=== PATIENT | male | born 1955 | race Caucasian/White ===

== ENCOUNTER 2018-01-26 18:19 | Emergency (ER) | payer MEDICARE, SELFPAY ==
[2018-01-26 18:20] VITALS: BP 202/107; PULSE 88; RESP 16; TEMP 36.2; O2SAT 96; BMI 30.4
[2018-01-26] MEDS: Glucagon 1 MG/ML Syringe IM (18:56)
--- NOTE | 2018-01-26 19:14 | NURSING ---
pt swallowed piece of ham, will observe the pt until then .
--- NOTE | 2018-01-26 19:30 | ED.DCSUM_ITS ---
- ER Visit Summary Date of Service: 01/26/18 Chief Complaint: Food stuck History of Present Illness: The patient is a 62 M who states that he was eating some him earlier and he feels the food is stuck in his esophagus. States this is happened to him before but it has always resolved. Patient notes that he is not drooling or having to spit. He is not short of breath. Does not feel like he is choking. 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 He has appointment upcoming is beginning of next month to have scope done. Physical Examination: Afebrile vital signs are stable Patient is sitting comfortably in the bed. He is not coughing. He is not drooling. His lungs are clear. Emergency Department Course and Treatment: Patient received glucagon and coke and he had resolution of his symptoms. He will be discharged home to follow-up with his doctor as scheduled. Impression: 1. Esophageal food bolus - resolved This note was generated with [employer] dictation software. It may contain incorrect words, spelling, and punctuation that were not noted in review of the chart prior to signing ED Disposition - Plan for ED Patient: Disposition: Home or Assisted Living Chief Complaint: Foreign Body Instructions: ED Foreign Body Esophageal Rslv Referrals: Michael Weber [Primary Care Provider] - Additional Instructions: You need to have a upper endoscopy. Please see referral to Dr. Stock above or the financial retirement plan specialist/surgeon of your choice.
[2018-01-26 19:43] VITALS: BP 173/100; PULSE 74; RESP 17; O2SAT 95
--- NOTE | 2018-01-26 19:48 | ED.RN ---
DISCHARGE INSTRUCTIONS GIVEN TO AND REVIEWED WITH PATIENT, PATIENT DENIES QUESTIONS OR CONCERNS AND VOICES UNDERSTANDING OF DISCHARGE INSTRUCTIONS. PT AMBULATES OUT OF ROOM WITHOUT DIFFICULTY.
== END 2018-01-26 19:50 | disposition home or self-care (01) ==
PROVIDERS: Emergency Provider Emergency Medicine; Family Provider Family Medicine; PCP Family Medicine
DX: T18.128A Food in esophagus causing other injury, initial encounter (principal); X58.XXXA Exposure to other specified factors, initial encounter; Y93.89 Activity, other specified; Y92.9 Unspecified place or not applicable; Z85.810 Personal history of malignant neoplasm of tongue; I10 Essential (primary) hypertension; K21.9 Gastro-esophageal reflux disease without esophagitis; Z79.899 Other long term (current) drug therapy
CPT/HCPCS: 96372; 99283; A4216; J1610

== ENCOUNTER → 2018-02-16 07:26 | Outpatient (CLI) | payer MEDICARE, SELFPAY ==
--- NOTE | 2018-02-16 07:30 | RAD_ITS ---
STUDY: X-RAY - ESOPHAGUS (BARIUM SWALLOW) WITH FLUOROSCOPY REASON FOR EXAM: Male, 62 years old. Dysphagia for solids and pills. 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 TECHNIQUE: 17 view(s) of the esophagus were obtained following swallowing of barium. FLUOROSCOPY TIME (if supplied): (1:30) minutes/seconds COMPARISON: None. FINDINGS: There is no demonstrated esophageal foreign body. There is evidence of a long segment narrowing of the proximal esophagus just distal to the origin of the esophagus to the level of the T1 vertebrae. The patient ingested a 12 mm tablet of barium. The tablet its trapped at that site. Correlation with endoscopy is recommended.. There is evidence of a small sliding hiatal hernia without gastroesophageal reflux. There is atherosclerotic calcification of the aortic arch with tortuosity of the descending aorta. Normal visualized pulmonary parenchyma. There are diffuse degenerative changes of the visualized thoracic spine. RAD/Esophagus Only IMPRESSION: Long segment of narrowing in the proximal esophagus with trapping of the 12 mm tablet of barium. Correlation with endoscopy is recommended for further evaluation. Small hiatal hernia without gastroesophageal reflux. Electronically Signed: Conner Gillespie MD at 8:56 EDT Tel [phone], Service support ,
== END ==
PROVIDERS: Family Provider Family Medicine; PCP Family Medicine; Visit Provider Internal Medicine Gastroenterology
DX: K22.2 Esophageal obstruction (principal); K44.9 Diaphragmatic hernia without obstruction or gangrene; R13.10 Dysphagia, unspecified
CPT/HCPCS: 74220

== ENCOUNTER 2018-03-07 20:07 | Emergency (ER) | payer MEDICARE, SELFPAY ==
[2018-03-07 20:08] VITALS: BP 151/93; PULSE 65; RESP 18; TEMP 36.8; O2SAT 97; BMI 29.2
--- NOTE | 2018-03-07 21:37 | NURSING ---
LAST TETANUS 2009 PER PT.
--- NOTE | 2018-03-07 22:06 | RAD_ITS ---
STUDY: X-RAY - LEFT FOOT CLINICAL: Male, 62 years old. Puncture wound TECHNIQUE: 3 view(s) of the foot. COMPARISON: 08/01/2015. FINDINGS: There is no evidence of fracture or dislocation. There are mild degenerative changes in the midfoot and at the first metatarsophalangeal joint. There are no radiodense foreign bodies. There is a plantar calcaneal spur noted. RAD/Foot min 3 Views IMPRESSION: No fracture or dislocation. Mild degenerative change. No radiodense foreign body. Plantar calcaneal spur. Electronically Signed: Randell Flores, at 23:24 EDT Tel , Service support ,
--- NOTE | 2018-03-07 22:06 | ED.DCSUM_ITS ---
- ER Visit Summary Date of Service: 03/07/18 Chief Complaint: Left foot puncture wound History of Present Illness: The patient is a 62 M puncture wound left foot yesterday evening. Resting nail through a rubber shoe. Epson salt yesterday. Tylenol and Aleve being used. Increasing pain. No fevers. History of diabetes. Allergies to latex. Tetanus 8 years ago. Physical Examination: General: Alert and oriented ?3, no acute distress HEENT: Normocephalic, atraumatic. Moist mucosa membranes Neck: supple, nontender. Cardiovascular: Regular rate and rhythm, no murmurs Respiratory: Normal breath sounds, symmetric, no distress Abdomen: Soft, nontender, nondistended Extremities: no edema, pulses intact ?4. Left lower extremity: Foot noted puncture ventral aspect lateral midfoot. No drainage or erythema. No dorsal foot erythema. Minimal tenderness to palpation. Neuro: no focal neurological deficits. Test Results: Left foot x-ray: No radiopaque foreign bodies Emergency Department Course and Treatment: Patient tetanus updated. No signs of infection. X-ray negative for radiopaque foreign bodies. Due to puncture through rubber soled shoes. We will placed on Cipro for 10 days. Wound care discussed. Follow-up with PCP. Return if any worsening symptoms. Treatment Plan: [] Disposition: Discharge Impression: 1. Left foot puncture wound 2. Tetanus update This note was generated with [employer] dictation software. It may contain incorrect words, spelling, and punctuation that were not noted in review of the chart prior to signing ED Disposition - Plan for ED Patient: Disposition: Home or Assisted Living Chief Complaint: Wound Diagnosis: Puncture wound of left foot, Tetanus update Instructions: ED Wound Puncture Foot Prescriptions: Ciprofloxacin [Cipro] 500 mg PO BID #20 tablet Referrals: Michael Weber [Primary Care Provider] - 5-7 Days
[2018-03-07] MEDS: Diphth,Pertuss(Acell),Tet Vac 0.5 ML Vial IM (22:24)
[2018-03-07] MEDS: Ciprofloxacin 500 MG Tablet PO (22:24)
[2018-03-07 23:07] VITALS: BP 135/84; PULSE 56; RESP 18; O2SAT 96
== END 2018-03-07 23:10 | disposition home or self-care (01) ==
PROVIDERS: Emergency Provider Emergency Medicine; Family Provider Family Medicine; PCP Family Medicine
DX: S91.332A Puncture wound without foreign body, left foot, initial encounter (principal); W22.8XXA Striking against or struck by other objects, initial encounter; Y93.9 Activity, unspecified; Y92.9 Unspecified place or not applicable; I10 Essential (primary) hypertension; E78.00 Pure hypercholesterolemia, unspecified; E11.9 Type 2 diabetes mellitus without complications; Z79.84 Long term (current) use of oral hypoglycemic drugs; Z79.899 Other long term (current) drug therapy
CPT/HCPCS: 73630; 90715; 99282

== ENCOUNTER → 2018-11-30 17:04 | Outpatient (CLI) | payer MEDICARE, SELFPAY ==
[2018-11-30 18:00] LABS: Hematocrit 42.6 % (40-54); Hemoglobin 14.2 g/dl (13.0-16.5); Mean Corp Hgb Conc 33.3 g/gl (32-36); Mean Corpuscular Hgb 29.8 pg (27.0-32.0); Mean Corpuscular Volume 89.3 fL (80-94); Mean Platelet Vol. 8.3 fl (6.2-12.0); Platelet Count 272 K/mm3 (150-450); RBC Distribution Width CV 13.6 % (11.6-14.6); RBC Distribution Width SD 44.4 fl (35.1-43.9); Red Blood Count 4.77 M/mm3 (4.6-6.2)
[2018-11-30 18:01] LABS: Scan Indicated on CBC? Y/N NO
--- NOTE | 2018-11-30 18:01 | SDCEKG_ITS ---
Test Reason : PREOP Blood Pressure : / mmHG Vent. Rate : 064 BPM Atrial Rate : 064 BPM P-R Int : 156 ms QRS Dur : 094 ms QT Int : 408 ms P-R-T Axes : -12 017 059 degrees QTc Int : 420 ms Normal sinus rhythm Normal ECG Confirmed by DARIA BEDOLLA, PATTI ([id number]), desk editor DYLAN MARIE ([id number]) on 12/03/2018 3:26:42 PM Referred By: Peter Ponce Confirmed By:PATTI HUFF MD
[2018-11-30 18:18] LABS: Anion Gap 11 (5-15); BUN 17 mg/dL (7-18); BUN/Creat Ratio 20.8 RATIO (10-20); Calcium,Total 8.9 mg/dL (8.5-10.1); Chloride 97 mmol/L (98-107); Creatinine, Serum 0.82 mg/dL (0.70-1.30); EST Glomerular Filtration Rate 101 mL/min (>60); Est Glom Filt Rate - Afr Amer 122 mL/min (>60); Glucose 137 mg/dL (74-106); Potassium 4.4 mmol/L (3.5-5.1); Sodium Level 132 mmol/L (136-145)
== END ==
PROVIDERS: Family Provider Family Medicine; PCP Family Medicine; Referring Provider Physician Assistant; Visit Provider Physician Assistant
DX: Z01.818 Encounter for other preprocedural examination (principal)
CPT/HCPCS: 36415; 80048; 85027; 93005

== ENCOUNTER → 2020-09-14 09:05 | Outpatient (CLI) | payer MEDICARE, SELFPAY | PROVIDERS: PCP Family Medicine; Referring Provider Internal Medicine Gastroenterology; Visit Provider Internal Medicine Gastroenterology | DX: Z11.59 Encounter for screening for other viral diseases (principal) | CPT/HCPCS: 87635; C9803; U0003 ==

== ENCOUNTER → 2021-01-01 11:03 | Outpatient (CLI) | payer MEDICARE, SELFPAY ==
--- NOTE | 2021-01-01 08:00 | PROSBIL_PTH ---
PATIENT: HERMAN LOPEZ LOC: [facility] U#:[id number] AGE/SX: 70/M ROOM: RE01/01/[address]: Dr. Mao Chaidez MD : 1955 BED: DIS: SPEC #: [id number] RECD: 01/01/21 11:19 STATUS: DIANA VARGHESE #: [id number] JIMENEZ: 01/01/21 08:[address]: Mao Chaidez DEPT: SURGICAL PATHOLOGY RECD BY: Altagracia Cantu ENTERED: 01/01/21 11:20 SP TYPE: PROST BX BLANCA DR: Dr. Michael Weber MD Tissues: A - PROSTATE RIGHT B - PROSTATE RIGHT C - PROSTATE RIGHT D - PROSTATE LEFT E - PROSTATE LEFT F - PROSTATE LEFT Procedures: PROSTATE BX HEADER OPERATION: Prostate biopsy PRE-OP DIAGNOSIS: Elevated PSA TISSUE SUBMITTED: A - Right apex, B - Right mid, C - Right base, D - Left apex, E - Left mid, F - Left base MICROSCOPIC DIAGNOSIS A. Right prostate, apex, core biopsy: Prostatic tissue, negative for malignancy. B. Right prostate, mid, core biopsy: Prostatic tissue, negative for malignancy. Focal mild acute and chronic inflammation. C. Right prostate, base, core biopsy: Prostatic tissue, negative for malignancy. D. Left prostate, apex, core biopsy: Prostatic tissue, negative for malignancy. E. Left prostate, mid, core biopsy: Prostatic tissue, negative for malignancy. F. Left prostate, base, core biopsy: Prostatic tissue, negative for malignancy. SJ:mehdi 01/02/2021 MICROSCOPIC DESCRIPTION Slides are reviewed. GROSS DESCRIPTION A - Received is one container designated prostate, right apex. The specimen consists of one elongated fragment of light anglin-white soft tissue measuring 0.3 cm in length and 0.1 cm in diameter. Also present is one minute fragment of anglin soft tissue measuring 0.1 x 0.1 x 0.1 cm. The specimen is totally submitted in one cassette. B - Received is one container designated prostate, right mid. The specimen consists of two elongated fragments of light anglin-white soft tissue measuring 1 and 1.5 cm in length and 0.1 cm in diameter. The specimen is totally submitted in one cassette. C - Received is one container designated prostate, right base. The specimen consists of two elongated fragments of light anglin-white soft tissue measuring 1 and 1.2 cm in length and 0.1 cm in diameter. The specimen is totally submitted in one cassette. D - Received is one container designated prostate, left apex. The specimen consists of one elongated fragment of light anglin-white soft tissue measuring 1.8 cm in length and 0.1 cm in diameter. The specimen is totally submitted in one cassette. E - Received is one container designated prostate, left mid. The specimen consists of two elongated fragments of light anglin-white soft tissue measuring 1 and 2 cm in length and 0.1 cm in diameter. The specimen is totally submitted in one cassette. F - Received is one container designated prostate, left base. The specimen consists of one elongated fragment of light anglin-white soft tissue measuring 1.5 cm in length and 0.1 cm in diameter. The specimen is totally submitted in one cassette. / SJ:rg 01/01/21 TC:3 CPT: G0146
== END ==
PROVIDERS: PCP Family Medicine; Referring Provider Urology; Visit Provider Urology
DX: R97.20 Elevated prostate specific antigen [PSA] (principal)
CPT/HCPCS: 88305; G0416

== ENCOUNTER → 2021-01-17 14:34 | Outpatient (CLI) | payer MEDICARE, SELFPAY | PROVIDERS: PCP Family Medicine; Referring Provider Internal Medicine Gastroenterology; Visit Provider Internal Medicine Gastroenterology | DX: Z11.59 Encounter for screening for other viral diseases (principal) | CPT/HCPCS: 87635; C9803; U0002 ==

== ENCOUNTER 2021-02-13 05:44 | Day surgery (SDC) | payer MEDICARE, SELFPAY ==
--- NOTE | 2021-02-08 10:02 | EKG12_ITS ---
Test Reason : PREOP Blood Pressure : / mmHG Vent. Rate : 056 BPM Atrial Rate : 056 BPM P-R Int : 172 ms QRS Dur : 100 ms QT Int : 418 ms P-R-T Axes : 014 055 054 degrees QTc Int : 403 ms Sinus bradycardia Poor R- wave progression Confirmed by YUMIKO BEDOLLA, BRIANA ([id number]), senior technical editor SHANTEL LAWS ([id number]) on 02/11/2021 2:06:04 PM Referred By: ANTOINE Confirmed By:BRIANA CALDERON MD
--- NOTE | 2021-02-08 10:10 | RAD_ITS ---
STUDY: X-RAY CHEST REASON FOR EXAM: Male, 65 years old. HX RADIATION/PREOP TECHNIQUE: PA and lateral views of the chest. COMPARISON: 08/01/2015 FINDINGS: The lungs are clear and expanded. There is no demonstrated pleural abnormality. Normal size heart. Moderate-sized hiatal hernia which is unchanged. Normal visualized pulmonary arteries. Normal visualized aortic arch and descending thoracic aorta. Normal visualized thoracic spine. Normal visualized ribs, clavicles, and shoulders. There is no demonstrated abnormality of the visualized soft tissue structures of the upper abdomen. RAD/Chest PA and Lateral IMPRESSION: No active disease. Electronically Signed: Antonio Cui MD at 7:48 EDT Tel , Service support ,
[2021-02-08 11:15] LABS: Hematocrit 39.9 % (40-54); Hemoglobin 13.2 g/dL (13.0-16.5); Mean Corp Hgb Conc 33.1 g/dL (32-36); Mean Corpuscular Hgb 31.1 pg (27.0-32.0); Mean Corpuscular Volume 93.9 fL (80-94); Mean Platelet Vol. 8.4 fl (6.2-12.0); Platelet Count 341 K/mm3 (150-450); RBC Distribution Width SD 44.7 fl (35.1-43.9); Red Blood Count 4.25 M/mm3 (4.6-6.2); White Blood Count 8.3 K/mm3 (4.4-11.0)
[2021-02-08 11:37] LABS: Hemoglobin A1c 5.8 % (3.8-5.6)
[2021-02-08 11:58] LABS: Anion Gap 6 (5-15); BUN 19 mg/dL (7-18); BUN/Creat Ratio 19.8 RATIO (10-20); Calcium,Total 9.4 mg/dL (8.5-10.1); Chloride 98 mmol/L (98-107); Creatinine, Serum 0.96 mg/dL (0.70-1.30); EST Glomerular Filtration Rate 83 mL/min (>60); Est Glom Filt Rate - Afr Amer 101 mL/min (>60); Glucose 116 mg/dL (74-106); Potassium 4.4 mmol/L (3.5-5.1); Sodium Level 129 mmol/L (136-145); Thyroid Stim Hormone (TSH) 0.45 uIU/mL (0.358-3.74)
[2021-02-13] VITALS (12 sets, daily range): BP systolic 117–175; BP diastolic 65–90; PULSE 53–77; RESP 16–18; TEMP 36–37.4; O2SAT 94–98; BMI 25.6
--- NOTE | 2021-02-13 | PROS_PTH ---
PATIENT: HERMAN LOPEZ LOC: [facility] [place] U#:[id number] AGE/SX: 65/M ROOM: RE02/13/[address]: Dr. Mao Chaidez MD : 1955 BED: DIS: 02/14/2021 SPEC #: [id number] RECD: 02/13/21 10:29 STATUS: DIANA REBrandy #: [id number] JIMENEZ: 02/13/21 00:[address]: Mao Chaidez DEPT: SURGICAL PATHOLOGY RECD BY: Torrey Gonzalez ENTERED: 02/13/21 10:29 SP TYPE: TURP OTHR DR: Dr. Michael Weber MD Tissues: Prostate, NOS Procedures: Surgery Specimen Level IV HEADER OPERATION: Cysto, TUR prostate, Olymp[employer] PRE-OP DIAGNOSIS: BPH with obstruction TISSUE SUBMITTED: Prostate chips MICROSCOPIC DIAGNOSIS Prostate, transurethral resection: Benign nodular hyperplasia, glandular and stromal types. Chronic prostatitis. AM:mehdi 02/14/2021 MICROSCOPIC DESCRIPTION Slides are reviewed. GROSS DESCRIPTION Received is one container labeled with the patient's name and designated prostate chips. The specimen consists of multiple irregular fragments of pink-anglin, rubbery, soft tissue that in aggregate weigh 12.6 gm and measure in aggregate 4.5 x 3 x 2 cm. The entire specimen is submitted in 12 cassettes. / SJ:mehdi 02/13/21 TC:3 CPT: 99590
[2021-02-13 06:21] LABS: Bedside Glucose 124 mg/dL (70-110)
[2021-02-13] MEDS: Lactated Ringers 1,000 ML 100 ML IV (06:29)
[2021-02-13] MEDS: Cefazolin 2 GM in 0.9% Normal Saline 100 ML IV (07:22)
--- NOTE | 2021-02-13 07:27 | HP.PCM_ITS ---
History of Present Illness Date of Admission: 02/13/21 Chief Complaint: BPH with obstruction The patient is a 65 year old male with a history of enlarged prostate with BPH with obstruction and failed medical therapy and today working to proceed with surgery for his prostate to relieve the obstruction. Working to do a TURP. Past Medical History Allergies latex Adverse Reaction (Verified 02/13/21 06:17) Rash Home Medications: Ambulatory Orders Medication Instructions Recorded Enalapril Maleate [Vasotec] 20 mg PO BID 01/26/18 Fexofenadine HCl [Suki Allergy] 60 mg PO DAILY 01/26/18 Glucosamine/MSM/Chondroitin A 2 tab PO BID 01/26/18 [Glucosamine Chondroit MSM Tab] Lovastatin [Mevacor] 40 mg PO QHS 01/26/18 Omeprazole 40 mg PO QHS 01/26/18 Pilocarpine HCl [Salagen] 10 mg PO BID 01/26/18 metFORMIN HCl [Glucophage] 1,000 mg PO BID 01/26/18 Calcium Carbonate [Calcium] 500 mg PO DAILY 03/07/18 Acetaminophen [Tylenol Arthritis] 1,300 mg PO BID 02/06/21 Acetaminophen [Tylenol Extra 500 mg PO BID 02/06/21 Strength] Famotidine [Acid Compress Trucker] 10 mg PO DAILY 02/06/21 Levothyroxine [Synthroid] 100 mcg PO DAILY 02/06/21 Metoprolol Tartrate [Lopressor 100 mg PO DAILY 02/06/21 (Beta Tahir)] Surgical History: no surgical history Smoking Status: Former smoker Tobacco Use: Non-smoker Review of Systems Constitutional: Denies: Chills, Fever, Weight Change HEENT: Denies: Head Aches, Sinus Congestion, Sinus Drainage Cardiovascular: Denies: Chest Pain, Palpitations Respiratory: Denies: Cough, Shortness of breath at rest, Sputum production Gastrointestinal: Denies: Abdominal Pain, Nausea, Vomiting Genitourinary: Denies: Dysuria Musculoskeletal: Denies: Joint Pain, Joint Tenderness Skin: Denies: Rash, Wounds Neurological: Denies: Numbness, Tingling, Focal weakness Psychiatric: Denies: Anxiety, Depression, Homicidal Ideations, Suicidal Ideations Hematologic/ Lymphatic: Denies: Easy Bruising, Easy Bleeding VTE Information - Inpt Only VTE Present on Admission: No - Physical Exam Vitals/I&O's: Vital Signs Temp Pulse Resp BP Pulse Ox 97.6 F L 53 L 16 120/76 97 02/13/21 06:22 02/13/21 06:22 02/13/21 06:22 02/13/21 06:22 02/13/21 06:22 Oxygen Delivery Method Room Air Weight: 76.4 kg Body Mass Index (BMI) 25.6 General: Alert, Oriented x3, Cooperative HEENT: Atraumatic, PERRLA, EOMI, Normocephalic Neck: Supple, No JVD, Negative Carotid Bruits Lungs: Clear to auscultation, Normal air movement Cardiovascular: Regular rate, No murmurs Abdomen: Bowel Sounds Present, Soft, Non Tender Extremities: No edema, Capillary Refill Less than 3 Seconds Skin: No rashes, No breakdown Musculoskeletal: No Tenderness to Palpation of Joints or Extremities Neurological: Cranial nerves II-XII grossly intact Psych/Mental Status: Normal Affect, Appropriate Microbiology Past 72 Hours 02/12/21 10:15 Interface Orders SARS-CoV-2 Antigen (Rapid) - Final Laboratory Results 02/13/21 06:15: POC Glucose 124 H Current Medications Cefazolin Sodium 2 gm/ Sodium (Chloride) 110 mls @ 150 mls/hr IV PREOP ONE Stop: 02/13/21 07:43 Lactated Ringer's () 1,000 mls @ 100 mls/hr IV .Q10H CARLOTTA Last Admin: 02/13/21 06:29 Dose: 100 mls/hr Documented by: Assessment/Plan Plan to proceed with a transurethral resection of the prostate.
--- NOTE | 2021-02-13 07:29 | DCINST_ITS ---
Discharge Diet: Light diet - advance as tolerated Discharge Activity: Return to Normal Activity Call your doctor if your incision/area has: Sudden Increased Bleeding Call your doctor if you observe: Fever of 101 or Higher Instructions: Transurethral Resection of the Prostate (TURP): Home Recovery Allergies/Adverse Reactions: Allergies latex Adverse Reaction (Verified 02/13/21 06:17) Rash Medications to take at Discharge Enalapril Maleate [Vasotec] 20 mg PO BID 01/26/18 Fexofenadine HCl [Suki Allergy] 60 mg PO DAILY 01/26/18 Glucosamine/MSM/Chondroitin A [Glucosamine Chondroit MSM Tab] 2 tab PO BID 01/26/18 Lovastatin [Mevacor] 40 mg PO QHS 01/26/18 Omeprazole 40 mg PO QHS 01/26/18 Pilocarpine HCl [Salagen] 10 mg PO BID 01/26/18 metFORMIN HCl [Glucophage] 1,000 mg PO BID 01/26/18 Calcium Carbonate [Calcium] 500 mg PO DAILY 03/07/18 Acetaminophen [Tylenol Arthritis] 1,300 mg PO BID 02/06/21 Acetaminophen [Tylenol Extra Strength] 500 mg PO BID 02/06/21 Famotidine [Acid District Representative] 10 mg PO DAILY 02/06/21 Levothyroxine [Synthroid] 100 mcg PO DAILY 02/06/21 Metoprolol Tartrate [Lopressor (Beta Tahir)] 100 mg PO DAILY 02/06/21 Ciprofloxacin [Cipro] 500 mg PO BID #10 tab 02/13/21 Ibuprofen 600 mg PO Q6H PRN PRN #20 tablet 02/13/21 The following prescriptions were given: Ciprofloxacin [Cipro] 500 mg PO BID #10 tab Transmission Status: Pending to [facility] Ibuprofen 600 mg PO Q6H PRN PRN #20 tablet PRN Reason: Pain 1-10 Or Fever Transmission Status: Pending to [facility] Primary Care Physician: Michael Weber MD [Primary Care Provider] - Test Results: Test results from this visit will be discussed in further detail at your follow- up appointment, if applicable. Please Follow Up With: Mao Chaidez MD When: in 2 weeks, please call to make an appointment. Proposed Discharge Date: 02/14/21
[2021-02-13] MEDS: Lubricating Jelly 60 GM Tube 30 GM TOPICAL (07:40)
--- NOTE | 2021-02-13 08:33 | PCM.OPRPT ---
Report of Operation Date of Procedure: 02/13/21 Pre-Operative Diagnosis: BPH with obstruction Post-Operative Diagnosis: Same Surgery/Procedure Performed:: Transurethral section of prostate Description of Surgical Findings:: In the preoperative setting I discussed with the patient how the surgery would be done with expect afterwards. We discussed how a prostate resection is done and we discussed the risk of the surgery including, bleeding, infection, retrograde ejaculation, changes with ejaculation or intercourse,. We discussed the possibility that the resection of the prostate may not alleviate his urinary symptoms. We discussed the small risk of developing scar tissue along the urethral channel and strictures. We also discussed the chance of the prostate could grow back and he may need further surgery or treatment in the future for prostate problems. Patient was taken back to the operating room, timeout procedure was performed, he was identified and marked and placed on the operating room table. He underwent general anesthesia. He was placed in dorsolithotomy position. Penis and testicles were prepped and draped in usual sterile fashion. Went into the bladder using the visual obturator with a resectoscope. Once inside the bladder identified the right and left ureteral orifice. I then identified the prostate and the anatomy of the prostate. I marked out the area of the sphincter and the verumontanum was identified. I then proceeded with the prostate resection first resected the median lobe. And then resected the right lobe of the prostate. Then to resect the left lobe of the prostate. I then resected the apical tissue of the prostate. Made sure that there was no injury to the sphincter or the verumontanum was still intact. At the end of the resection all the chips were Ellik out of the bladder. I then identified the left and right ureteral orifice and these were confirmed to be in good position and effluxing and not injured. The resectoscope was removed, a 22 [place] catheter was placed into the bladder on continuous irrigation. And the urine was fairly light pink color and draining normally. He was taken back to the PACU in good condition. Type of Anesthesia:: General - Admit VTE Documentation VTE Present on Admission: No VTE Mechan Device Prophylaxis: SCD's
[2021-02-13 09:30] LABS: Bedside Glucose 121 mg/dL (70-110)
[2021-02-13] MEDS: 0.9% Normal Saline 1,000 ML 75 ML IV ×2 (10:21→23:29)
[2021-02-13] MEDS: metFORMIN HCl 1,000 MG Tablet 1000 MG PO (18:15)
[2021-02-13] MEDS: Docusate Sodium 100 MG Capsule PO (20:55)
[2021-02-13] MEDS: Atorvastatin Calcium 10 MG Tablet PO (20:56)
[2021-02-13] MEDS: Lisinopril 20 MG Tablet PO (20:56)
[2021-02-13] MEDS: Pantoprazole Sodium 40 MG Tablet PO (20:56)
[2021-02-13] MEDS: Pilocarpine HCl 5 MG Tablet 10 MG PO (20:57)
[2021-02-13] MEDS: Ciprofloxacin 400 MG/200 ML BAG 200 MG IV (21:00)
[2021-02-14 03:00] VITALS: BP 117/71; PULSE 67; RESP 18; TEMP 37.2; O2SAT 94
[2021-02-14] MEDS: Levothyroxine 100 MCG Tablet PO (06:31)
[2021-02-14 08:08] VITALS: BP 148/81; PULSE 66; RESP 18; TEMP 36.9; O2SAT 94
[2021-02-14] MEDS: Lisinopril 20 MG Tablet PO (08:10)
[2021-02-14] MEDS: Docusate Sodium 100 MG Capsule PO (08:10)
[2021-02-14] MEDS: metFORMIN HCl 1,000 MG Tablet 1000 MG PO (08:10)
[2021-02-14 08:11] VITALS: PULSE 66
[2021-02-14] MEDS: Metoprolol(XL)Succ 100 MG Tablet PO (08:11)
[2021-02-14] MEDS: Pilocarpine HCl 5 MG Tablet 10 MG PO (08:11)
[2021-02-14] MEDS: Ciprofloxacin 400 MG/200 ML BAG 200 MG IV (09:51)
== END 2021-02-14 11:54 | disposition home or self-care (01) ==
LOC: SDC 05:49 → AC 05:49 → MS3 08:59
PROVIDERS: Anesthesiology; PCP Family Medicine; Referring Provider Urology; Visit Provider Urology
PROC: (CPT 52601; principal; 2021-02-13 07:20)
DX: N40.1 Benign prostatic hyperplasia with lower urinary tract symptoms (principal); N13.8 Other obstructive and reflux uropathy; E78.2 Mixed hyperlipidemia; K21.9 Gastro-esophageal reflux disease without esophagitis; E11.9 Type 2 diabetes mellitus without complications; I10 Essential (primary) hypertension; Z87.891 Personal history of nicotine dependence; Z79.84 Long term (current) use of oral hypoglycemic drugs; Z79.899 Other long term (current) drug therapy; E07.9 Disorder of thyroid, unspecified
CPT/HCPCS: 00914; 52601; 36415; 71046; 80048; 82962; 83036; 84443; 85027; 87426; 88305; 93005; C9803; J7030; J7120; J0744; J2405

== ENCOUNTER → 2021-07-04 08:52 | Outpatient (CLI) | payer MEDICARE, SELFPAY ==
[2021-07-04 10:23] LABS: PSA,Total- Diagnostic 1.56 ng/mL (0.0-4.0)
== END ==
PROVIDERS: PCP Family Medicine; Referring Provider Urology; Visit Provider Urology
DX: R97.20 Elevated prostate specific antigen [PSA] (principal)
CPT/HCPCS: 36415; 84153

== ENCOUNTER 2022-01-26 12:51 | Observation (INO) | payer MEDICARE, SELFPAY ==
[2022-01-26] VITALS (7 sets, daily range): BP systolic 174–232; BP diastolic 71–106; PULSE 58–63; RESP 14–18; TEMP 36.4–36.7; O2SAT 95–98; BMI 27.3; BMI 24.5
--- NOTE | 2022-01-26 13:53 | CT_ITS ---
STUDY: CT BRAIN WITHOUT CONTRAST REASON FOR EXAM: Male, 66 years old. Stroke RADIATION DOSAGE (If Supplied By Facility): CTDIvol = ( 44.99 ) mGy, DLP = ( 779.24 ) mGycm TECHNIQUE: Transaxial CT imaging of the brain was performed without administration of intravenous contrast material. Individualized dose optimization techniques were used for this CT. COMPARISON: 08/01/2015 FINDINGS: There is no intra-/extra-axial fluid collection, mass effect, or midline shift. The kaiser/white matter junction is preserved. Mild diffuse parenchymal volume loss is noted. The basal cisterns are patent. Polyps versus retention cysts are noted in the left sphenoid sinus and right ethmoid air cells. Minimal mucoperiosteal thickening of the bilateral ethmoid air cells is seen.. The calvarium is intact. CT/Brain/Head without Contrast IMPRESSION: No acute intracranial finding. MRI may be obtained if clinical suspicion for acute stroke is high. Electronically Signed: Anthony Baldwin MD at 15:29 EDT ,
[2022-01-26 15:09] LABS: Absolute Lymphocyte Count 1.41 X10^3/uL (0.83-4.51); Absolute Neutrophil Count 6.1 X10^3/uL (2.0-7.7); Basophil# 0.09 X10^3/uL; Eosinophil# 0.16 X10^3/uL; Eosinophils% 1.8 % (0-5); Hematocrit 33.1 % (40-54); Hemoglobin 12.2 g/dL (13.0-16.5); Lymphocyte # 1.41 X10^3/ul (0.83-4.51); Lymphocyte % 15.7 % (19-41); Mean Corp Hgb Conc 36.9 g/dL (32-36); Mean Corpuscular Hgb 32.3 pg (27.0-32.0); Mean Corpuscular Volume 87.6 fL (80-94); Mean Platelet Vol. 7.5 fl (6.2-12.0); Monocyte# 1.03 X10^3/uL; Monocyte% 11.5 % (0-10); NRBC Flagged by Analyzer 0 % (0-5); Neutrophil # 6.09 X10^3/uL (2.7-7.7); Neutrophil % 67.7 % (47-70); Platelet Count 368 K/mm3 (150-450); RBC Distribution Width CV 13.2 % (11.6-14.6); Red Blood Count 3.78 M/mm3 (4.6-6.2)
[2022-01-26 15:24] LABS: AST(SGOT) 13 U/L (15-37); Alanine Aminotransfer ALT/SGPT 20 U/L (16-61); Albumin, Serum 3.5 g/dL (3.2-5.0); Alkaline Phosphatase 53 U/L (45-117); Anion Gap 8 (5-15); BUN 17 mg/dL (7-18); BUN/Creat Ratio 18.6 RATIO (10-20); Calcium,Total 9.2 mg/dL (8.5-10.1); Chloride 86 mmol/L (98-107); Creatinine, Serum 0.91 mg/dL (0.70-1.30); EST Glomerular Filtration Rate 88 mL/min (>60); Est Glom Filt Rate - Afr Amer 106 mL/min (>60); Estimated Creatinine Clearance 76.21 ml/min; Globulin 3.6 g/dL (2.2-4.2); Glucose 119 mg/dL (74-106); Protein, Total 7.1 g/dL (6.4-8.2); Sodium Level 122 mmol/L (136-145)
--- NOTE | 2022-01-26 15:48 | EDS_ITS ---
HPI History of Present Illness Chief Complaint: Ear Problem Informant: patient and family Onset/Context/Timing Onset: Today Timing: Continuous Quality: Hearing loss Location: Ears Worsened by: Nothing Relieved by: Nothing Narrative Narrative: Patient presents with hearing loss that became worse today. Family states patient has been having difficulty hearing as well as difficulty comprehending things that are spoken to him. Patient denies any ear pain. Family states patient has had 35 pound weight loss since the beginning of the year. Family reports patient does have a history of throat cancer and they are concerned with metastasis. Family also noted sores and bumps to the occipital scalp that have been getting progressively worse. [facility] Medical History (Updated 01/26/22 @ 16:[address] Ulisses Cali, DO) Diabetes History of prostate cancer History of throat cancer HLD (hyperlipidemia) Hypertension Home Medications Lovastatin [Mevacor] 40 mg PO QHS 01/26/18 [History Last Taken Unknown] Pilocarpine Hcl [Salagen] 10 mg PO BID 01/26/18 [History Last Taken Unknown] enalapril maleate 20 mg PO BID 01/26/18 [History Last Taken Unknown] fexofenadine [Suki Allergy] 60 mg PO DAILY 01/26/18 [History Last Taken Unknown] glucosamine [id number] 2 tab PO BID 01/26/18 [History Last Taken Unknown] metformin 1,000 mg PO BID 01/26/18 [History Last Taken Unknown] omeprazole 40 mg PO QHS 01/26/18 [History Last Taken Unknown] calcium carbonate 500 mg PO DAILY 03/07/18 [History Last Taken Unknown] acetaminophen 1,300 mg PO BID 02/06/21 [History Last Taken Unknown] acetaminophen 500 mg PO BID 02/06/21 [History Last Taken Unknown] famotidine 10 mg PO DAILY 02/06/21 [History Last Taken Unknown] levothyroxine 100 mcg PO DAILY 02/06/21 [History Last Taken Unknown] metoprolol tartrate 100 mg PO DAILY 02/06/21 [History Last Taken Unknown] ciprofloxacin HCl 500 mg PO BID #10 tab 02/13/21 [Rx Last Taken Unknown] ibuprofen 600 mg PO Q6H PRN PRN #20 tablet 02/13/21 [Rx Last Taken Unknown] Allergy/AdvReac Type Severity Reaction Status Date / Time latex AdvReac Rash Verified 01/26/22 12:54 Family History (Updated 01/26/22 @ 16:[address] Lexie Peña MD) Mother Diabetes Gout Father Diabetes Gout Surgical History (Updated 01/26/22 @ 16:[address] Lexie Peña MD) H/O bone marrow transplant Hx of neck surgery S/P TURP Social History Smoking Status: Former smoker ROS ROS ED Constitutional Constitutional ED: Denies chills or fever(s) Eyes Eyes: Denies blurry vision or change in vision ENT ENT ED: Denies rhinorrhea or sore throat Cardiovascular Cardiovascular: Denies chest pain or palpitations Respiratory/Chest Respiratory/Chest: Denies cough or dyspnea Gastrointestinal Gastrointestinal: Denies nausea or vomiting Genitourinary Genitourinary ED: Denies dysuria or hematuria Musculoskeletal Musculoskeletal: Denies back pain or neck pain Integumentary Reports rash; Denies abscess Neurologic Neurologic: Denies headache(s) or weakness Allergic/Immunologic Allergic/Immunologic ED: Denies mouth swelling or urticaria EXAM Physical Exam Const Vital Signs: 01/26/22 12:53 01/26/22 14:57 Temperature 97.6 F L Temperature Source Temporal Pulse Rate 63 58 L Respiratory Rate 18 16 Blood Pressure 231/106 H 194/80 H Blood Pressure Mean 147 118 Pulse Ox 96 97 Oxygen Delivery Method Room Air Room Air Positive well nourished and well developed General Appearance ED: well developed and NAD HEENT Reports moist mucous membranes HEENT Narrative: There is only mild effusion behind the right tympanic membrane. The left tympanic membrane was occluded with cerumen. Neck supple and no JVD Resp normal respiratory effort and clear to auscultation bilaterally Cardio regular rate and regular rhythm GI normal to inspection, nondistended, normoactive bowel sounds and non-tender Palpation: soft Extremity normal to inspection General Extremety ED: Negative for edema or tenderness General Extremity: Negative for edema Neuro oriented x3, CN's II-XII intact bilaterally and no sensory deficits noted Sensorium / Orientation: alert Motor Exam: strength 5/5 throughout Psych mental status grossly normal MDM MDM MDM Narrative Medical decision making narrative: CT scan of the brain was obtained. There is no acute intracranial abnormality. This was interpreted by the radiologist and reviewed by myself. BC patient has mild anemia with a hemoglobin of 12.2 and hematocrit 33.1. Comprehensive metabolic profile shows a hyponatremia of 122 and hypochloremia of 86. Anion gap was normal. Patient was given IV fluids. The left ear will be irrigated. Case was discussed with the hospitalist. She will admit the patient for observation. Patient and family understood and were agreeable with the plan. All questions were answered. Lab Data Attestation: I reviewed the patient's lab results. Labs: Laboratory Results - last 24 hr 01/26/22 01/26/22 14:50 14:50 WBC 9.0 RBC 3.78 L Hgb 12.2 L Hct 33.1 L MCV 87.6 MCH 32.3 H MCHC 36.9 H RDW Std Deviation 42.0 RDW Coeff of Aaliyah 13.2 Plt Count 368 MPV 7.5 Immature Gran % (Auto) 2.300 H Neut % (Auto) 67.7 Lymph % (Auto) 15.7 L [place] % (Auto) 11.5 H Eos % (Auto) 1.8 Baso % (Auto) 1.0 Absolute Neuts (auto) 6.1 Absolute Lymphs (auto) 1.41 Nucleated RBC % 0 Sodium 122 L Potassium 4.0 Chloride 86 L Carbon Dioxide 28.0 Anion Gap 8 BUN 17 Creatinine 0.91 Estim Creat Clear Calc 76.21 Est GFR (MDRD) Af Amer 106 Est GFR (MDRD) Non-Af 88 BUN/Creatinine Ratio 18.6 Glucose 119 H Calcium 9.2 Total Bilirubin 0.20 AST 13 L ALT 20 Alkaline Phosphatase 53 Total Protein 7.1 Albumin 3.5 Globulin 3.6 Albumin/Globulin Ratio 1.0 Radiography Diagnostic Testing: Clinical Impression(s) from Imaging Studies Brain CT 01/26/22 13:53 IMPRESSION: No acute intracranial finding. MRI may be obtained if clinical suspicion for acute stroke is high. Electronically Signed: Anthony Baldwin MD at 15:29 EDT , Discharge Plan Triage Chief Complaint: Ear Problem ED Provider: Ulisses Cali Dx/Rx/DC Orders Clinical Impression: Hyponatremia, Hearing loss Prescriptions: No Action metformin 500 MG tablet 1,000 mg PO BID RF: 0 enalapril maleate 10 MG tablet 20 mg PO BID RF: 0 fexofenadine [Suki Allergy] 60 MG tablet 60 mg PO DAILY RF: 0 omeprazole 40 MG Capsule.Dr 40 mg PO QHS RF: 0 glucosamine [id number]-hbhozqtrrl 1 EACH tablet 2 tab PO BID RF: 0 Lovastatin [Mevacor] 40 MG tablet 40 mg PO QHS RF: 0 Pilocarpine Hcl [Salagen] 5 MG tablet 10 mg PO BID RF: 0 calcium carbonate 500 MG Tab.Chew 500 mg PO DAILY RF: 0 famotidine 10 MG tablet 10 mg PO DAILY RF: 0 metoprolol tartrate 100 MG tablet 100 mg PO DAILY RF: 0 acetaminophen 500 MG tablet 500 mg PO BID RF: 0 acetaminophen 650 MG tablet extended release 1,300 mg PO BID RF: 0 levothyroxine 100 MCG tablet 100 mcg PO DAILY RF: 0 ciprofloxacin HCl 500 MG tablet 500 mg PO BID Qty: 10 RF: 0 ibuprofen 600 MG tablet 600 mg PO Q6H PRN PRN (Reason: Pain 1-10 Or Fever) Qty: 20 RF: 0 Primary Care Provider: Michael Weber Referrals: Michael Weber MD [Primary Care Provider] - Disposition Disposition: Acute Care Hospital [facility]
--- NOTE | 2022-01-26 16:05 | PCM.HP.STD ---
HPI - General General Date of Admission: 01/26/22 Date of Service: 01/26/22 Chief Complaint: BL hearing loss, progressive weight loss x 3 months, poor intake. HPI Narrative The patient is a 66 y/o M w/ PMHx: Hypothyroidism, HTN, Hx Throat CA s/p chemo and radiation w/ esophageal strictures s/p dilation with Dr. Stock, Hx Leukemia, unclear type, Diabetes mellitus type II, Former tobacco use, Hx Prostate CA w/ BPH s/p TURP, Chronic Hyponatremia who presents to the [facility] ED on 01/26/22 with history of ongoing sudden onset upon awakening of BL progressive hearing loss which worsened through the day with while in the ED need to transition to writing messages secondary to reported loss of hearing in addition to a reported approximate 30 pound weight loss since the beginning of the year with poor oral intake routinely prompting family to bring patient to the ED for evaluation. Work-up in the ED included TD7.6, heart rate 63, BP initially 231/106 with most recent repeat 184/80, respiratory rate 16, 97% on room air, CBC with WC 9, hemoglobin 12.2, platelets 368 without marked shift, CMP with sodium 122, chloride 86, glucose 119, unremarkable hepatic profile, CT of the brain with no acute intracranial findings. In the ED patient had irrigation of his left ear with effusion behind the R TM. In the ED patient administered NS. [facility] Medical History (Updated 01/26/22 @ 16:[address] Lexie Peña MD) Diabetes History of prostate cancer History of throat cancer HLD (hyperlipidemia) Hypertension Home Medications Lovastatin [Mevacor] 40 mg PO QHS 01/26/18 [History Last Taken Unknown] Pilocarpine Hcl [Salagen] 10 mg PO BID 01/26/18 [History Last Taken Unknown] enalapril maleate 20 mg PO BID 01/26/18 [History Last Taken Unknown] fexofenadine [Suki Allergy] 60 mg PO DAILY 01/26/18 [History Last Taken Unknown] glucosamine [id number] 2 tab PO BID 01/26/18 [History Last Taken Unknown] metformin 1,000 mg PO BID 01/26/18 [History Last Taken Unknown] omeprazole 40 mg PO QHS 01/26/18 [History Last Taken Unknown] calcium carbonate 500 mg PO DAILY 03/07/18 [History Last Taken Unknown] acetaminophen 1,300 mg PO BID 02/06/21 [History Last Taken Unknown] acetaminophen 500 mg PO BID 02/06/21 [History Last Taken Unknown] famotidine 10 mg PO DAILY 02/06/21 [History Last Taken Unknown] levothyroxine 100 mcg PO DAILY 02/06/21 [History Last Taken Unknown] metoprolol tartrate 100 mg PO DAILY 02/06/21 [History Last Taken Unknown] ciprofloxacin HCl 500 mg PO BID #10 tab 02/13/21 [Rx Last Taken Unknown] ibuprofen 600 mg PO Q6H PRN PRN #20 tablet 02/13/21 [Rx Last Taken Unknown] Allergy/AdvReac Type Severity Reaction Status Date / Time latex AdvReac Rash Verified 01/26/22 12:54 Family History (Updated 01/26/22 @ 16:[address] Lexie Peña MD) Mother Diabetes Gout Father Diabetes Gout Surgical History (Updated 01/26/22 @ 16:[address] Lexie Peña MD) H/O bone marrow transplant Hx of neck surgery S/P dilatation of esophageal stricture S/P TURP Social History (Updated 01/26/22 @ 16:[address] Lexie Peña MD) household members: none Smoking Status: Former smoker how long ago did patient quit smoking: Quit 27 years ago, smoked 2-3 ppd since teen, used chew also. alcohol intake: never substance use type: does not use ROS ROS Narrative Admission Review of Systems: CONSTITUTIONAL: No fever, chills, + weakness or fatigue, weight loss. HEENT: + oral thrush, dysphagia, BL hearing loss. Eyes: No visual loss, blurred vision, double vision or yellow sclerae. Ears, Nose, Throat: No hearing loss, sneezing, congestion, runny nose or sore throat. SKIN: No rash or itching, lesions, wounds. CARDIOVASCULAR: No chest pain, chest pressure or chest discomfort, palpitations, edema, orthopnea, syncopal events. RESPIRATORY: No shortness of breath, cough or sputum, wheezing, hemoptysis. GASTROINTESTINAL: + anorexia, oral thrush, dysphagia, No nausea, vomiting, diarrhea, abdominal pain, melena, BRBPR. GENITOURINARY: No dysuria, frequency, urgency or retention. NEUROLOGICAL: No headache, dizziness, syncope, paralysis, ataxia, numbness or tingling in the extremities, focal weakness, change in bowel or bladder control, seizure. MUSCULOSKELETAL: No muscle, back pain, joint pain or stiffness. HEMATOLOGIC: + anemia, bleeding or bruising. LYMPHATICS: No enlarged nodes. No history of splenectomy. PSYCHIATRIC: No history of depression or anxiety. ENDOCRINOLOGIC: No reports of sweating, cold or heat intolerance. No polyuria or polydipsia. ALLERGIES: No history of asthma, hives, eczema or rhinitis. Vital Signs Vital Signs Vital Signs: 01/26/22 12:53 01/26/22 14:57 Temperature 97.6 F L Temperature Source Temporal Pulse Rate 63 58 L Respiratory Rate 18 16 Blood Pressure 231/106 H 194/80 H Blood Pressure Mean 147 118 Pulse Ox 96 97 Oxygen Delivery Method Room Air Room Air Weight Weight: 180 lb Body Mass Index (BMI) 27.3 Physical Exam Narrative Physical Examination: General: Awake, alert, oriented to self, place and events by writing, remains cooperative, seated upright in the ED bed in no apparent distress, communicating via writing. Skin: Normal color, normal turgor, no icterus, no cyanosis except various picked regions. HEENT: AT/NC, EOMI, PERRLA, dry MM, oral thrush, no carotid bruits or JVD noted, effusion R TM, cerum L sided without visualization TM. Lungs: Diminished, > bases, moderate effort, no rales, ronchi or wheezing. Heart: Currently regular rate and rhythm; no gallop, rub audible. Abdomen: Soft, NTTP, ND, hypoactive BS, no obvious HSM. Extremities: No cyanosis, clubbing, or edema. Neurological: Patient awake, alert, oriented as noted, cognitive function intact; pupils equally reactive to light and accommodation, cranial nerves grossly normal except absence of BL hearing, awaiting irrigation to ascertain if improves initially with this intervention, moving all 4 extremities, no focal deficits, strength mildly globally decreased. Psychiatric: Affect appears flat, no acute evidence of depressive or anxiety feelings. Results Lab / Micro Data Result Diagrams: 01/26/22 14:50 01/26/22 14:50 Labs: Laboratory Results - last 24 hr 01/26/22 14:50: WBC 9.0, RBC 3.78 L, Hgb 12.2 L, Hct 33.1 L, MCV 87.6, MCH 32.3 H, MCHC 36.9 H, RDW Std Deviation 42.0, RDW Coeff of Aaliyah 13.2, Plt Count 368, MPV 7.5, Immature Gran % (Auto) 2.300 H, Neut % (Auto) 67.7, Lymph % (Auto) 15.7 L, [place] % (Auto) 11.5 H, Eos % (Auto) 1.8, Baso % (Auto) 1.0, Absolute Neuts (auto) 6.1, Absolute Lymphs (auto) 1.41, Nucleated RBC % 0 01/26/22 14:50: Sodium 122 L, Potassium 4.0, Chloride 86 L, Carbon Dioxide 28.0, Anion Gap 8, BUN 17, Creatinine 0.91, Estim Creat Clear Calc 76.21, Est GFR (MDRD) Af Amer 106, Est GFR (MDRD) Non-Af 88, BUN/Creatinine Ratio 18.6, Glucose 119 H, Calcium 9.2, Total Bilirubin 0.20, AST 13 L, ALT 20, Alkaline Phosphatase 53, Total Protein 7.1, Albumin 3.5, Globulin 3.6, Albumin/Globulin Ratio 1.[address] 01/26/22 13:53 IMPRESSION: No acute intracranial finding. MRI may be obtained if clinical suspicion for acute stroke is high. Electronically Signed: Anthony Baldwin MD at 15:29 EDT , Assessment & Plan Assessment/Plan (1) Hyponatremia: (2) Hearing loss: QUALIFIERS: Hearing loss type: unspecified Laterality: bilateral Qualified Code(s): H91.93 - Unspecified hearing loss, bilateral PLAN: The patient is a 66 y/o M w/ PMHx: Hypothyroidism, HTN, Hx Throat CA s/p chemo and radiation w/ esophageal strictures s/p dilation with Dr. Stock, Hx Leukemia, unclear type, Diabetes mellitus type II, Former tobacco use, Hx Prostate CA w/ BPH s/p TURP, Chronic Hyponatremia who presents to the [facility] ED on 01/26/22 with history of ongoing sudden onset upon awakening of BL progressive hearing loss which worsened through the day with while in the ED need to transition to writing messages secondary to reported loss of hearing in addition to a reported approximate 30 pound weight loss since the beginning of the year. #1. Acute on Chronic Hyponatremia, possibly Hypovolemic component given poor oral intake Hx: Admission Na 122, baseline appearance 129-132, suspect mildly worsened secondary to poor reported intake with hypovolemic appearance, continue to closely monitor, obtain FeNa, TSH, Mag, Osm in case not improving for baseline studies, repeat CMP in AM. #2. Progressive bilateral hearing loss: CT of the brain with no acute findings and given that this has been ongoing progressive, given history to be cautious will obtain MRI brain with and without contrast, attempting ED initiated irrigation of his ear and will monitor effusion. Pending MRI findings may refer or consult ENT. If concerning findings of metastatic disease patient as noted previously followed with [facility]. #3. Moderate to severe protein calorie malnutrition: Patient with approximate 35 pound weight loss since the beginning of the year, poor intake per family, nutrition will be consulted, monitor I&Os. #4. Uncontrolled hypertension: We will dose patient with his medications now, we will continue patient home enalapril, metoprolol, add additional regimens pending response, as needed IV hydralazine in interim. #5. Thrush: Will initiate nystatin S/S, certainly could be contributing to his poor oral intake. #6. Hx Leukemia, Unclear type: s/p BM transplant per report, unclear type of leukemia, followed prior with [facility]. #7. History of throat cancer with esophageal strictures: Patient status post chemo and radiation, history of strictures with dilation ongoing as needed with Dr. Stock, we will continue patient home pilocarpine regimen. #8. Anemia, normocytic: Admission Hgb 12.2, baseline prior noted 13.2, will trend. #9. Hyperlipidemia: Continue home statin regimen. #10. Diabetes mellitus type II: Hold oral home regimen, ADA diet, accu checks w/ ISS. #11. Allergic rhinitis: We will continue patient home. #12. Hypothyroidism: Continue home synthroid regimen, TSH pending. #13. GERD: We will maintain on home PPI regimen #14. Hx Prostate CA w/ BPH: Status post TURP. #15. DVT prophylaxis: SCDs, Lovenox. Charges/Coding Visit Charges OBSV E&M: 99836 Initial observation care L3
[2022-01-26] MEDS: Labetalol (Prefilled) 20 MG/4 ML 10 MG IV (16:33)
[2022-01-26] MEDS: 0.9% Normal Saline 1,000 ML 1000 ML IV (16:33)
[2022-01-26 17:08] LABS: Magnesium 1.1 mg/dL (1.6-2.6); Thyroid Stim Hormone (TSH) 1.38 uIU/mL (0.358-3.74)
[2022-01-26] MEDS: Carbamide Peroxide 15 ML Bottle 5 DRP OTIC (17:08)
[2022-01-26 18:02] LABS: Osmolality, Serum 261 mOsm/KG (280-301)
[2022-01-26] MEDS: 0.9% Normal Saline 1,000 ML 125 ML IV ×2 (20:19→23:49)
[2022-01-26] MEDS: Metoprolol Tartrate 100 MG Tablet PO (20:20)
[2022-01-26] MEDS: Lisinopril 20 MG Tablet PO (20:21)
[2022-01-26] MEDS: NYSTATIN 500,000 UNIT/5 ML UDC 500000 UNIT PO ×2 (20:21→22:45)
[2022-01-26] MEDS: Pantoprazole Sodium 40 MG Tablet PO (20:22)
[2022-01-26] MEDS: Atorvastatin Calcium 10 MG Tablet PO (20:22)
[2022-01-26 20:32] LABS: Urine Sodium 51 mmol/L (Not Establ.)
[2022-01-26 20:37] LABS: Osmolality, Urine 327 mOsm/KG
[2022-01-26 21:05] LABS: Bedside Glucose 139 mg/dL (74-106)
[2022-01-27] VITALS (7 sets, daily range): BP systolic 160–191; BP diastolic 69–90; PULSE 64–70; RESP 16–18; TEMP 36.7–37.2; O2SAT 95–98
--- NOTE | 2022-01-27 05:55 | MRI_ITS ---
STUDY: MRI BRAIN WITH AND WITHOUT CONTRAST REASON FOR EXAM: Male, 66 years old. Deficits with throat CA hx TECHNIQUE: Standardized multiplanar fat and water weighted pulse sequences were obtained. IV 15mL DOTAREM was administered for the contrast portion of the examination. COMPARISON: Head CT dated January 26, 2022 FINDINGS: There is mild cerebral atrophy with widening of the extra-axial spaces and ventricular dilatation. Normal white matter tracts of the supratentorial brain. There is no evidence for recent intracranial ischemia or other cause of cytotoxic edema on diffusion weighted imaging (DWI). Normal T2* images of the brain without demonstrated susceptibility artifact. There is no demonstrated hemosiderin stain. No demonstrated focal parenchymal edema or lesions or abnormal enhancement of the meninges or dura. Normal bilateral basal ganglia. Normal thalami. There is no extra-axial fluid accumulation. Normal flow voids within the major intracranial circulation suggesting patency by spin echo criteria. Normal venous enhancement. There is no enhancing intra-axial or extra-axial abnormality. Normal sella turcica, pituitary gland, infundibular stalk, optic chiasm and hypothalamus. Normal tectal plate and pineal gland. Normal midbrain, lary and medulla. Normal cerebellum. Normal basal cisterns. Normal bilateral temporal bones. Normal bilateral internal auditory canals. No demonstrated orbital abnormality, within the constraints of a routine brain study. Normal visualized paranasal sinuses. Normal calvarium and skull base. Normal visualized soft tissue structures. Normal visualized upper cervical spine. Moderate fatty atrophy seen in the left side of the tongue. MRI/Brain W/WO Contrast IMPRESSION: 1. Unremarkable unenhanced and enhanced MRI of the brain. 2. No demonstrated focal parenchymal edema or lesions or abnormal enhancement of the meninges or dura. 3. No acute infarct or intracranial hemorrhage. Electronically Signed: Obinna Kam MD at 11:28 EDT Reading Location ID and State: [facility] / [place] , Service support ,
[2022-01-27] MEDS: Levothyroxine 100 MCG Tablet PO (06:07)
[2022-01-27] MEDS: 0.9% Normal Saline 1,000 ML 125 ML IV (06:09)
[2022-01-27 06:16] LABS: Bedside Glucose 128 mg/dL (74-106)
[2022-01-27 06:29] LABS: Absolute Lymphocyte Count 1.07 X10^3/uL (0.83-4.51); Absolute Neutrophil Count 6.8 X10^3/uL (2.0-7.7); Basophil# 0.09 X10^3/uL; Eosinophil# 0.14 X10^3/uL; Eosinophils% 1.5 % (0-5); Hemoglobin 11.1 g/dL (13.0-16.5); Lymphocyte # 1.07 X10^3/ul (0.83-4.51); Lymphocyte % 11.6 % (19-41); Mean Corp Hgb Conc 35.8 g/dL (32-36); Mean Corpuscular Hgb 31.5 pg (27.0-32.0); Mean Corpuscular Volume 88.1 fL (80-94); Mean Platelet Vol. 7.7 fl (6.2-12.0); Monocyte# 0.99 X10^3/uL; Monocyte% 10.7 % (0-10); NRBC Flagged by Analyzer 0 % (0-5); Neutrophil # 6.76 X10^3/uL (2.7-7.7); Neutrophil % 73.2 % (47-70); Platelet Count 362 K/mm3 (150-450); RBC Distribution Width CV 13.3 % (11.6-14.6); RBC Distribution Width SD 42.8 fl (35.1-43.9); Red Blood Count 3.52 M/mm3 (4.6-6.2); White Blood Count 9.2 K/mm3 (4.4-11.0)
[2022-01-27 06:54] LABS: AST(SGOT) 14 U/L (15-37); Alanine Aminotransfer ALT/SGPT 21 U/L (16-61); Albumin, Serum 3.1 g/dL (3.2-5.0); Alkaline Phosphatase 46 U/L (45-117); Anion Gap 7 (5-15); BUN 12 mg/dL (7-18); BUN/Creat Ratio 15.8 RATIO (10-20); Calcium,Total 8.1 mg/dL (8.5-10.1); Chloride 92 mmol/L (98-107); Creatinine, Serum 0.76 mg/dL (0.70-1.30); EST Glomerular Filtration Rate 109 mL/min (>60); Est Glom Filt Rate - Afr Amer 132 mL/min (>60); Estimated Creatinine Clearance 67.02 ml/min; Globulin 3.2 g/dL (2.2-4.2); Glucose 106 mg/dL (74-106); Protein, Total 6.3 g/dL (6.4-8.2); Sodium Level 124 mmol/L (136-145)
--- NOTE | 2022-01-27 09:14 | NURSING ---
pt states this is where my bp usually runs
[2022-01-27] MEDS: Lisinopril 20 MG Tablet PO ×2 (09:22→23:26)
[2022-01-27] MEDS: Metoprolol Tartrate 100 MG Tablet PO (09:22)
[2022-01-27] MEDS: Enoxaparin 40 MG/0.4 ML Syringe SC (09:23)
[2022-01-27] MEDS: 0.9% Saline Lock 10 ML Syringe IV (09:23)
[2022-01-27] MEDS: Pantoprazole Sodium 40 MG Tablet PO (09:23)
[2022-01-27] MEDS: Loratadine 10 MG Tablet PO (09:23)
[2022-01-27] MEDS: NYSTATIN 500,000 UNIT/5 ML UDC 500000 UNIT PO ×3 (09:23→23:26)
[2022-01-27] MEDS: hydrALAZINE 20 MG/ML Vial 10 MG IV (09:23)
[2022-01-27 10:12] LABS: Magnesium 1.2 mg/dL (1.6-2.6)
--- NOTE | 2022-01-27 10:24 | PN.HOSP_ITS ---
Subjective Subjective Follow-up on acute hearing loss: Patient seen and examined. MRI of the brain has been unremarkable. Objective Data Objective Data Vital Signs: Vital Signs Temp Pulse Resp BP Pulse Ox 98.3 F 64 18 191/87 H 98 01/27/22 09:14 01/27/22 09:23 01/27/22 09:14 01/27/22 09:23 01/27/22 09:14 Oxygen Delivery Method Room Air Weight: 71.2 kg Body Mass Index (BMI) 24.5 Intake & Output: Intake and Output for Last 24 Hours 01/25/22 01/26/22 01/27/22 23:59 23:59 23:59 Intake Total 1000 / 1000 2210.42 / 2210.42 Balance 1000 / 1000 2210.42 / 2210.42 Lab / Micro Data Result Diagrams: 01/27/22 05:25 01/27/22 05:25 Labs: Laboratory Results - last 24 hr 01/26/22 14:50: WBC 9.0, RBC 3.78 L, Hgb 12.2 L, Hct 33.1 L, MCV 87.6, MCH 32.3 H, MCHC 36.9 H, RDW Std Deviation 42.0, RDW Coeff of Aaliyah 13.2, Plt Count 368, MP V 7.5, Immature Gran % (Auto) 2.300 H, Neut % (Auto) 67.7, Lymph % (Auto) 15.7 L , [place] % (Auto) 11.5 H, Eos % (Auto) 1.8, Baso % (Auto) 1.0, Absolute Neuts (auto) 6.1, Absolute Lymphs (auto) 1.41, Nucleated RBC % 0 01/26/22 14:50: Sodium 122 L, Potassium 4.0, Chloride 86 L, Carbon Dioxide 28.0, Anion Gap 8, BUN 17, Creatinine 0.91, Estim Creat Clear Calc 76.21, Est GFR (MDRD) Af Amer 106, Est GFR (MDRD) Non-Af 88, BUN/Creatinine Ratio 18.6, Glucose 119 H, Calcium 9.2, Total Bilirubin 0.20, AST 13 L, ALT 20, Alkaline Phosphatase 53, Total Protein 7.1, Albumin 3.5, Globulin 3.6, Albumin/Globulin Ratio 1.0 01/26/22 14:50: Magnesium 1.1 L, TSH 1.38 01/26/22 14:50: Serum Osmolality 261 L 01/26/22 19:20: Urine Osmolality 327, Ur Random Sodium 51, Urine Creatinine 38.10 01/26/22 21:00: POC Glucose 139 H 01/27/22 05:25: WBC 9.2, RBC 3.52 L, Hgb 11.1 L, Hct 31.0 L, MCV 88.1, MCH 31.5, MCHC 35.8, RDW Std Deviation 42.8, RDW Coeff of Aaliyah 13.3, Plt Count 362, MPV 7.7, Immature Gran % (Auto) 2.000 H, Neut % (Auto) 73.2 H, Lymph % (Auto) 11.6 L , [place] % (Auto) 10.7 H, Eos % (Auto) 1.5, Baso % (Auto) 1.0, Absolute Neuts (auto) 6.8, Absolute Lymphs (auto) 1.07, Nucleated RBC % 0 01/27/22 05:25: Sodium 124 L, Potassium 4.0, Chloride 92 L, Carbon Dioxide 25.0, Anion Gap 7, BUN 12, Creatinine 0.76, Estim Creat Clear Calc 67.02, Est GFR (MDRD) Af Amer 132, Est GFR (MDRD) Non-Af 109, BUN/Creatinine Ratio 15.8, Glucose 106, Calcium 8.1 L, Total Bilirubin 0.30, AST 14 L, ALT 21, Alkaline Phosphatase 46, Total Protein 6.3 L, Albumin 3.1 L, Globulin 3.2, Albumin/Globulin Ratio 1.0 01/27/22 05:25: Magnesium 1.2 L 01/27/22 06:06: POC Glucose 128 H Radiography Diagnostic Testing: Radiology Impression Brain CT 01/26/22 13:53 IMPRESSION: No acute intracranial finding. MRI may be obtained if clinical suspicion for acute stroke is high. Electronically Signed: Anthony Baldwin MD at 15:29 EDT , Physical Exam Narrative Physical exam: General: Alert, Oriented x3, Cooperative, No apparent distress, Well developed HEENT: Atraumatic Oral: Moist Mucosa Neck: Supple Lungs: Clear to auscultation Cardiovascular: HS I+II, regular, no murmurs Abdomen: Bowel Sounds Present, Soft, Non Tender Extremities: No edema Assessment & Plan Assessment/Plan (1) Hyponatremia: (2) Hearing loss: QUALIFIERS: Hearing loss type: unspecified Laterality: bilateral Qualified Code(s): H91.93 - Unspecified hearing loss, bilateral PLAN: The patient is a 66 y/o M w/ PMHx: Hypothyroidism, HTN, Hx Throat CA s/p chemo and radiation w/ esophageal strictures s/p dilation with Dr. Stcok, Hx Leukemia, unclear type, Diabetes mellitus type II, Former tobacco use, Hx Prostate CA w/ BPH s/p TURP, Chronic Hyponatremia who presents to the [facility] ED on 01/26/22 with history of ongoing sudden onset upon awakening of BL progressive hearing loss which worsened through the day with while in the ED need to tr ansition to writing messages secondary to reported loss of hearing in addition to a reported approximate 30 pound weight loss since the beginning of the year. #1. Acute on Chronic Hyponatremia, possibly Hypovolemic component given poor oral intake Hx: Admission Na 122, baseline appearance 129-132, suspect mildly worsened secondary to poor reported intake with hypovolemic appearance, continue to closely monitor, obtain FeNa, TSH, Mag, Osm in case not improving for baseline studies, repeat CMP in AM. #2. Progressive bilateral hearing loss: CT of the brain with no acute findings and given that this has been ongoing progressive, given history to be cautious will obtain MRI brain with and without contrast, attempting ED initiated irrigation of his ear and will monitor effusion. Pending MRI findings may refer or consult ENT. If concerning findings of metastatic disease patient as noted pr eviously followed with [facility]. #3. Moderate to severe protein calorie malnutrition: Patient with approximate 35 pound weight loss since the beginning of the year, poor intake per family, n utrition will be consulted, monitor I&Os. #4. Uncontrolled hypertension: We will dose patient with his medications now, we will continue patient home enalapril, metoprolol, add additional regimens p ending response, as needed IV hydralazine in interim. #5. Thrush: Will initiate nystatin S/S, certainly could be contributing to his poor oral intake. #6. Hx Leukemia, Unclear type: s/p BM transplant per report, unclear type of leukemia, followed prior with [facility]. #7. History of throat cancer with esophageal strictures: Patient status post chemo and radiation, history of strictures with dilation ongoing as needed with Dr. Stock, we will continue patient home pilocarpine regimen. #8. Anemia, normocytic: Admission Hgb 12.2, baseline prior noted 13.2, will trend. #9. Hyperlipidemia: Continue home statin regimen. #10. Diabetes mellitus type II: Hold oral home regimen, ADA diet, accu checks w/ ISS. #11. Allergic rhinitis: We will continue patient home. #12. Hypothyroidism: Continue home synthroid regimen, TSH pending. #13. GERD: We will maintain on home PPI regimen #14. Hx Prostate CA w/ BPH: Status post TURP. #15. DVT prophylaxis: SCDs, Lovenox. Charges/Coding Visit Charges OBSV E&M: 76908 Subsequent observation care L3
[2022-01-27] MEDS: Insulin Lispro 100 UNIT/ML INSULN.PEN SC (11:13)
[2022-01-27 11:30] LABS: Bedside Glucose 195 mg/dL (74-106)
--- NOTE | 2022-01-27 12:15 | CASEMGMT ---
RN CM Face to Face with patient for initial transition planning/care coordination assessment. RN CM introduced self and role at [facility]. Patient lying in bed, alert and oriented, but very hard of hearing. Daughter at bedside, willing to participate in assessment and is able to answer all questions appropriately. Care providers, pharmacy, and demographics verified. Daughter wishes for patient to discharge home, denies need for home health at this time. Daughter states she has no further needs or concerns at this time. CM to follow for discharge planning needs that may arise. PCP: Tia Specialists: preston Mercado; TOSHA Good Preferred Pharmacy: [facility] Insurance: [employer] Prescription Benefit: yes Living Will/HPOA: none LNOK: daughter, patient currently going through divorce Living Arrangements: Patient lives alone in an RV with 3 steps and grab bar to enter. Patient is independent at home. Transportation: self, daughter DME/HHC: Patient has grab bar in bathroom at home. No previous HHC or SNF. Disposition Plan: Patient to discharge home with family support and follow-up plans in place. Jhoana JIMENEZ, RN, CM
--- NOTE | 2022-01-27 12:23 | CASEMGMT ---
MELO CM in to complete COTTON form with patient. Daughter at bedside, patient hard of hearing and gave permission for daughter Sammie to complete COTTON form. RN TASHA explained COTTON form, daughter voiced understanding. Daughter signed COTTON form and filed in chart. Patient provided with copy of signed COTTON form. Daughter had no further questions or concerns at this time.
[2022-01-27] MEDS: Carbamide Peroxide 15 ML Bottle OTIC (13:13)
[2022-01-27] MEDS: Glucerna Shake 120 ML LIQUID PO ×2 (13:13→23:28)
--- NOTE | 2022-01-27 16:38 | PCM.DC.SUM ---
Providers Date of Admission: 01/26/22 Date of Discharge: 01/27/22 Primary Care Physician: Dr. Michael Weber MD Reason For Visit: FTT ADULT, WEIGHT LOSS, HYPONATREMIA Diagnosis Discharge Diagnosis (1) Hyponatremia: Status: Acute Code(s): E87.1 - Hypo-osmolality and hyponatremia (2) Hearing loss: Status: Acute Code(s): H91.90 - Unspecified hearing loss, unspecified ear Qualifiers: Hearing loss type: unspecified Laterality: bilateral Qualified Code(s): H91.93 - Unspecified hearing loss, bilateral (3) Severe protein-calorie malnutrition: Status: Acute Code(s): E43 - Unspecified severe protein-calorie malnutrition Medications at Discharge Home Medications Lovastatin [Mevacor] 40 mg PO QHS 01/26/18 Pilocarpine Hcl [Salagen] 10 mg PO BID 01/26/18 enalapril maleate 20 mg PO BID 01/26/18 glucosamine [id number] 2 tab PO TID 01/26/18 metformin 1,000 mg PO BID 01/26/18 omeprazole 40 mg PO QHS 01/26/18 acetaminophen 1,300 mg PO BID 02/06/21 famotidine 10 mg PO DAILY 02/06/21 levothyroxine 100 mcg PO DAILY 02/06/21 metoprolol succinate 50 mg PO QHS 01/26/22 metoprolol succinate 100 mg PO DAILY 01/26/22 hydralazine 25 mg PO BID 30 Days #60 tab 01/27/22 Hospital Course Operations None Procedures None Summary of Care Provided Minutes Spent on Discharge: 35 Hospital Course: 66 y/o male with PMHx of hypothyroidism, throat CA s/p chemotherapy and radiation, esophageal stricture s/p dilatation, type II DM who presented with bilateral hearing loss that got worse throughout the day. Patient Fred here, he has been communicating by writing the messages. He also had hyponatremia likely secondary to chlorothiazide [facility], MRI of the brain was negative for any acute abnormality. Patient's left ear was full of wax. He was prescribed Debrox. Patient had uncontrolled blood pressure. His hydrochlorothiazide was discontinued. He was started on hydralazine. An outpatient ENT appointment was made for 01/28/22. Patient will follow up with ENT and with his primary care doctor. His daughter was present at his bedside at discharge. All questions were answered. She will follow-up with his blood pressure readings daily. He will follow-up with her primary care doctor within a week. Physical Exam Narrative Physical exam: General: Alert, Oriented x3, Cooperative, No apparent distress, with hearing loss HEENT: Atraumatic Oral: Moist Mucosa Neck: Supple Lungs: Clear to auscultation Cardiovascular: HS I+II, regular, no murmurs Abdomen: Bowel Sounds Present, Soft, Non Tender Extremities: No edema Medical Records Data Medical Nutrition Assessment Dietitian: Malnutrition Criteria Met Start: 01/27/22 12:15 Freq: Status: Active Protocol: Document 01/27/22 12:15 [facility] (Rec: 01/27/22 12:15 [facility] [id number]) Nutrition Malnutrition Evidence of Malnutrition Exists Yes Malnutrition (severe): Acute Illness/Injury Evidenced By Suboptimal Energy Intake ( Severe),Weight Loss (Severe) Intake Problem Inadequate Oral Intake Etiology related to increased stress and depression Signs/Symptoms as evidenced by <50% of meals and 12.8% wt loss x 3-4 months Status Active Problem Clinical Problem Acute Disease or Injury Related Malnutrition Etiology related to increased stress and depression making it difficult to consume adequate nutrition to meet est nutritional needs Signs/Symptoms as evidenced by 12.8% wt loss and <50% po intake at meals in past 3 months. Has fat/ muscle wasting in face ( orbitals/temporals) and upper body. Status Active Problem Biting/Chewing Difficulty Etiology related to edentulous and no dentures Signs/Symptoms as evidenced by preference for minced/moist diet consistencies per pt daugther Status Resolved Problem Recommendation Dietitian Recommendations/Changes Will liberalize diet to Regular - consistency per [employer] - with magic cup or ensure pudding at meals Will continue ONS w/ medpass for increased nutrition if consumed. Weight / BMI Weight Weight: 71.2 kg Body Mass Index (BMI) 24.5 ABG / Lab / Microbiology Data Result Diagrams: 01/27/22 05:25 01/27/22 05:25 Laboratory: Laboratory Results - last 24 hr 01/26/22 14:50: Magnesium 1.1 L, TSH 1.38 01/26/22 14:50: Serum Osmolality 261 L 01/26/22 19:20: Urine Osmolality 327, Ur Random Sodium 51, Urine Creatinine 38.10 01/26/22 21:00: POC Glucose 139 H 01/27/22 05:25: WBC 9.2, RBC 3.52 L, Hgb 11.1 L, Hct 31.0 L, MCV 88.1, MCH 31.5, MCHC 35.8, RDW Std Deviation 42.8, RDW Coeff of Aaliyah 13.3, Plt Count 362, MPV 7.7, Immature Gran % (Auto) 2.000 H, Neut % (Auto) 73.2 H, Lymph % (Auto) 11.6 L, [place] % (Auto) 10.7 H, Eos % (Auto) 1.5, Baso % (Auto) 1.0, Absolute Neuts (auto) 6.8, Absolute Lymphs (auto) 1.07, Nucleated RBC % 0 01/27/22 05:25: Sodium 124 L, Potassium 4.0, Chloride 92 L, Carbon Dioxide 25.0, Anion Gap 7, BUN 12, Creatinine 0.76, Estim Creat Clear Calc 67.02, Est GFR (MDRD) Af Amer 132, Est GFR (MDRD) Non-Af 109, BUN/Creatinine Ratio 15.8, Glucose 106, Calcium 8.1 L, Total Bilirubin 0.30, AST 14 L, ALT 21, Alkaline Phosphatase 46, Total Protein 6.3 L, Albumin 3.1 L, Globulin 3.2, Albumin/Globulin Ratio 1.0 01/27/22 05:25: Magnesium 1.2 L 01/27/22 06:06: POC Glucose 128 H 01/27/22 11:07: POC Glucose 195 H Radiography Diagnostic Testing: Radiology Impression Brain MRI 01/27/22 05:55 IMPRESSION: 1. Unremarkable unenhanced and enhanced MRI of the brain. 2. No demonstrated focal parenchymal edema or lesions or abnormal enhancement of the meninges or dura. 3. No acute infarct or intracranial hemorrhage. Electronically Signed: Obinna Kam MD at 11:28 EDT , D/C Instructions Discharge Diet: No restrictions Meaningful Use Info Meaningful Use Diagnoses (Choose all that apply): None applicable Discharge Plan Admission Admit Date/Time: 01/26/22 16:16 Primary Reason for Your Visit: Hearing loss Attending Provider: Barbara Bhakta Primary Care Provider: Michael Weber Instructions Additional Instructions / Restrictions: Take note of the changes made to your medications. Your hydrochlorothiazide has been held because of low sodium Measure your blood pressure every day You will need repeat blood work with your primary care doctor within 1 week to follow-up within 1 week Discharge Orders/Prescriptions Prescriptions: New hydralazine 25 mg tablet 25 mg PO BID 30 Days Qty: 60 RF: 0 Continued metformin 500 MG tablet 1,000 mg PO BID RF: 0 enalapril maleate 10 MG tablet 20 mg PO BID RF: 0 omeprazole 40 MG capsule,delayed release(DR/EC) 40 mg PO QHS RF: 0 glucosamine [id number] 1 EACH tablet 2 tab PO TID RF: 0 Lovastatin [Mevacor] 40 MG tablet 40 mg PO QHS RF: 0 Pilocarpine Hcl [Salagen] 5 MG tablet 10 mg PO BID RF: 0 famotidine 10 MG tablet 10 mg PO DAILY RF: 0 acetaminophen 650 MG tablet extended release 1,300 mg PO BID RF: 0 levothyroxine 100 MCG tablet 100 mcg PO DAILY RF: 0 metoprolol succinate 50 mg tablet extended release 24 hr 50 mg PO QHS RF: 0 metoprolol succinate 100 mg tablet extended release 24 hr 100 mg PO DAILY RF: 0 Discontinued acetaminophen 500 MG tablet 1,000 mg PO BID RF: 0 hydrochlorothiazide 25 mg tablet 25 mg PO DAILY RF: 0 Referrals / Follow Up: Michael Weber MD [Primary Care Provider] - Ancelmo Neri MD [STAFF PHYSICIAN] - 01/28/22 8:15 am (Bring insurance card, list of meds, and photo id) Disposition Disposition (needs filled in before D/C Order can be placed): Home, Self Care Charges/Coding Visit Charges OBSV E&M: 74685 Observation care discharge
--- NOTE | 2022-01-27 17:48 | NURSING ---
1700- present discharge instructions given to daughter. MD has been into talk with pt/daughter and aware of follow up plan. daughter states pt is frustrated and now refusing to even speak, instead just pointing to his paper that has written communication on it. extensive 1:1 bedside spent with pt/daughter/md including md talking directly on the phone to the daughter multiple times. Soraida Charge nurse aware. pt refuses to get dressed. offered de-escalation including offering to have security help- daughter states that may make pt more frustrated.
[2022-01-27 21:55] LABS: Bedside Glucose 145 mg/dL (74-106)
[2022-01-27] MEDS: Magnesium Chloride 64 MG Delay Rel.Tablet 128 MG PO (23:27)
[2022-01-27] MEDS: Pilocarpine HCl 5 MG Tablet 10 MG PO (23:28)
[2022-01-27] MEDS: Atorvastatin Calcium 10 MG Tablet PO (23:28)
--- NOTE | 2022-01-28 07:36 | PCM.PN.HOSP ---
Subjective Subjective Late entry note: Patient was seen and examined and discharged on 01/27/22. He refused to leave at the end of the day until follow-up with ENT. Follow-up on acute hearing loss: Patient was seen and examined. He still stated that he cannot hear. He has been writing down some mode of communication. His daughter was at the bedside. Objective Data Objective Data Vital Signs: Vital Signs Temp Pulse Resp BP Pulse Ox 98.5 F 70 16 170/69 H 97 01/27/22 20:38 01/27/22 20:38 01/27/22 20:38 01/27/22 20:38 01/27/22 20:38 Oxygen Delivery Method Room Air Weight: 71.5 kg Body Mass Index (BMI) 24.5 Intake & Output: Intake and Output for Last 24 Hours 01/26/22 01/27/22 01/28/22 23:59 23:59 23:59 Intake Total 1000 / 1000 2911.67 / 2911.67 Balance 1000 / 1000 2911.67 / 2911.67 Medical Nutrition Assessment Dietitian: Malnutrition Criteria Met Start: 01/27/22 12:15 Freq: Status: Active Protocol: Document 01/27/22 12:15 [facility] (Rec: 01/27/22 12:15 [facility] [id number]) Nutrition Malnutrition Evidence of Malnutrition Exists Yes Malnutrition (severe): Acute Illness/Injury Evidenced By Suboptimal Energy Intake ( Severe),Weight Loss (Severe) Intake Problem Inadequate Oral Intake Etiology related to increased stress and depression Signs/Symptoms as evidenced by <50% of meals and 12.8% wt loss x 3-4 months Status Active Problem Clinical Problem Acute Disease or Injury Related Malnutrition Etiology related to increased stress and depression making it difficult to consume adequate nutrition to meet est nutritional needs Signs/Symptoms as evidenced by 12.8% wt loss and <50% po intake at meals in past 3 months. Has fat/ muscle wasting in face ( orbitals/temporals) and upper body. Status Active Problem Biting/Chewing Difficulty Etiology related to edentulous and no dentures Signs/Symptoms as evidenced by preference for minced/moist diet consistencies per pt daugther Status Resolved Problem Recommendation Dietitian Recommendations/Changes Will liberalize diet to Regular - consistency per [employer] - with magic cup or ensure pudding at meals Will continue ONS w/ medpass for increased nutrition if consumed. Lab / Micro Data Result Diagrams: 01/27/22 05:25 01/27/22 05:25 Labs: Laboratory Results - last 24 hr 01/27/22 05:25: Magnesium 1.2 L 01/27/22 11:07: POC Glucose 195 H 01/27/22 21:48: POC Glucose 145 H Radiography Diagnostic Testing: Radiology Impression Brain MRI 01/27/22 05:55 IMPRESSION: 1. Unremarkable unenhanced and enhanced MRI of the brain. 2. No demonstrated focal parenchymal edema or lesions or abnormal enhancement of the meninges or dura. 3. No acute infarct or intracranial hemorrhage. Electronically Signed: Obinna Kam MD at 11:28 EDT , Physical Exam Narrative Physical exam: General: Alert, Oriented x3, Cooperative, No apparent distress, hard of hearing, HEENT: Atraumatic, right external auditory canal is clear, left external auditory canal has wax Oral: Moist Mucosa Neck: Supple Lungs: Clear to auscultation Cardiovascular: HS I+II, regular, no murmurs Abdomen: Bowel Sounds Present, Soft, Non Tender Extremities: No edema Assessment & Plan Assessment/Plan (1) Hyponatremia: (2) Hearing loss: QUALIFIERS: Hearing loss type: unspecified Laterality: bilateral Qualified Code(s): H91.93 - Unspecified hearing loss, bilateral (3) Severe protein-calorie malnutrition: PLAN: 1. Acute on chronic hyponatremia, improving Na 124. Off hydrochlorothiazide, continue to monitor 2. Progressive bilateral hearing loss, MRI of the brain with and without contrast is unremarkable for acute 3. Moderate to severe protein calorie malnutrition, e business consultant consulted, follow-up recommended 4. Hypertension, uncontrolled, will hold HCTZ Continue metoprolol, lisinopril 5. Hypothyroidism, anemia, hyperlipidemia, GERD, remained stable Continue rest of home medication 6. DVT prophylaxis -Lovenox SC Charges/Coding Visit Charges Inpatient E&M: 04244 Subs Hosp L2
== END 2022-01-28 07:46 | disposition home or self-care (01) ==
LOC: ED 16:29 → MS3 17:34
PROVIDERS: Admitting Provider Family Medicine; Emergency Provider Emergency Medicine; PCP Family Medicine; Visit Provider Internal Medicine
DX: E87.1 Hypo-osmolality and hyponatremia (principal); E43 Unspecified severe protein-calorie malnutrition; E11.9 Type 2 diabetes mellitus without complications; I10 Essential (primary) hypertension; D64.9 Anemia, unspecified; H91.93 Unspecified hearing loss, bilateral; E78.5 Hyperlipidemia, unspecified; F32.A Depression, unspecified; R45.851 Suicidal ideations; E03.9 Hypothyroidism, unspecified; Z87.891 Personal history of nicotine dependence; Z79.899 Other long term (current) drug therapy; Z79.84 Long term (current) use of oral hypoglycemic drugs; Z68.24 Body mass index [BMI] 24.0-24.9, adult; Z79.890 Hormone replacement therapy; Z85.00 Personal history of malignant neoplasm of unspecified digestive organ; Z92.21 Personal history of antineoplastic chemotherapy; Z92.3 Personal history of irradiation; Z85.46 Personal history of malignant neoplasm of prostate; B37.0 Candidal stomatitis; K21.9 Gastro-esophageal reflux disease without esophagitis
CPT/HCPCS: 36415; 70450; 70553; 80048; 80053; 80307; 81001; 82077; 82570; 82962; 83735; 83930; 83935; 84300; 84443; 85025; 87811; 92610; 93005; 96361; 96372; 96374; 96375; 97802; 99218; 99251; 99285; A9575; J7030; A4216; G0378; G0463; J3486

== ENCOUNTER 2022-01-28 10:03 | Emergency (ER) | payer MEDICARE, SELFPAY ==
[2022-01-28] VITALS (10 sets, daily range): BP systolic 157–234; BP diastolic 58–119; PULSE 79–101; RESP 14–16; TEMP 36.6; O2SAT 96–99; BMI 25.8
--- NOTE | 2022-01-28 10:20 | EX.ED.VIS.PS ---
HPI HPI - Psych History of Present Illness Chief Complaint: Mental Health Informant: family Onset/Context/Timing Onset: Today Context: Gradual Onset Conflict: Family Timing: Continuous Current Severity: Mild Maximum Severity: Mild Associated Symptoms Associated Symptoms - Psych: Positive for Depressed and Change in Eating Narrative Narrative: 66-year-old male history of diabetes prior throat cancer hypertension and a prior bone marrow transplant for leukemia. His recently left him several months ago. She is now living in [place]. His daughter lives about an hour away. He was just admitted to the hospital the other day because of decreased sodium and said he could not hear. He was discharged from the hospital this morning went to the ear nose and throat doctor and admitted to his daughter he was faking not being able to hear the entire time. He refused to leave the ear nose and throat doctor office. The daughters told him they either need to leave her there to call the police. She then brought him to the emergency department. Currently the patient will not speak to me at all. Will not answer any questions. Prior similar symptoms: No Recent Illness/Hospitalization: Yes [facility] Medical History Diabetes Former smoker Hearing loss, left Hearing loss, right History of prostate cancer History of throat cancer HLD (hyperlipidemia) Hypertension Home Medications enalapril maleate 20 mg PO BID 01/26/18 [History Last Taken Unknown] glucosamine [id number] 2 tab PO TID 01/26/18 [History Last Taken Unknown] metformin 1,000 mg PO BID 01/26/18 [History Last Taken Unknown] omeprazole 40 mg PO QHS 01/26/18 [History Last Taken Unknown] acetaminophen 1,300 mg PO BID 02/06/21 [History Last Taken Unknown] famotidine 10 mg PO DAILY 02/06/21 [History Last Taken Unknown] levothyroxine 100 mcg PO DAILY 02/06/21 [History Last Taken Unknown] metoprolol succinate 50 mg PO QHS 01/26/22 [History Last Taken Unknown] hydralazine 25 mg PO BID 30 Days #60 tab 01/27/22 [Rx Last Taken Unknown] gabapentin 100 mg PO TID 01/28/22 [History Last Taken Unknown] hydrochlorothiazide 25 mg PO DAILY 01/28/22 [History Last Taken Unknown] lovastatin 40 mg PO DAILY 01/28/22 [History Last Taken Unknown] metoprolol succinate 100 mg PO DAILY 01/28/22 [History Last Taken Unknown] pilocarpine HCl 10 mg PO BID 01/28/22 [History Last Taken Unknown] Allergy/AdvReac Type Severity Reaction Status Date / Time latex AdvReac Rash Verified 01/26/22 12:54 Family History Mother Diabetes Gout Father Diabetes Gout Surgical History H/O bone marrow transplant Hx of neck surgery S/P dilatation of esophageal stricture S/P TURP Social History household members: none Smoking Status: Former smoker how long ago did patient quit smoking: Quit 27 years ago, smoked 2-3 ppd since teen, used chew also. alcohol intake: never substance use type: does not use ROS ROS ED ROS Narrative Unable to obtain because the patient refuses to speak or at this time give me any history. Review of Systems ROS Unobtainable: due to mental condition EXAM Physical Exam Narrative Exam Narrative: Older male no acute distress. Initial blood pressure elevated to 34/96. He does not look septic or toxic. He is afebrile. H EENT exam unremarkable. 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 Neck nontender. Trachea midline. Lungs clear to auscultation. Heart regular rhythm rate about 80 no murmur. Chest wall nontender. Abdomen soft nontender. Extremities nontender. Back nontender. Neurologically is awake. He will not answer any questions or at this time follow commands. Const Vital Signs: 01/28/22 10:04 01/28/22 12:18 01/28/22 13:37 Temperature 97.8 F Temperature Source Temporal Pulse Rate 79 86 Respiratory Rate 16 15 16 Blood Pressure 234/96 H 219/93 H Blood Pressure Mean 142 135 Pulse Ox 98 97 Oxygen Delivery Method Room Air Room Air Room Air 01/28/22 15:22 Temperature Temperature Source Pulse Rate 101 H Respiratory Rate 16 Blood Pressure 214/119 H Blood Pressure Mean 150 Pulse Ox 96 Oxygen Delivery Method Room Air Positive well nourished and well developed; Negative for obese, cachectic, contractures or unkempt General Appearance ED: well developed and NAD; Negative for unkempt, cachectic, contractures or pallor Nutritional Appearance: Negative for cachectic or obese HEENT Reports moist mucous membranes normocephalic and atraumatic Eyes PERRL and EOMs intact bilaterally Neck no lymphadenopathy, supple and no JVD General: Negative for tenderness Resp normal respiratory effort and clear to auscultation bilaterally Auscultation: Negative for rales, rhonchi or wheezes Cardio S1 normal heart sound, S2 normal heart sound and no murmurs Rate: regular rate Rhythm: regular rhythm GI non-tender, non-distended and no masses Inspection: Negative for abdominal distention Auscultation: normoactive bowel sounds Palpation: soft; Negative for tender or guarding Back/Spine no CVA tenderness General Back: Negative for CVA tenderness Cervical Spine: Negative for cervical spine tenderness Thoracic Spine / Upper Back: Negative for thoracic spinal tenderness Extremity normal to inspection General Extremety ED: Negative for edema or tenderness General Extremity: Negative for edema Neuro Neuro Narrative: Patient will not speak or answer any questions or follow any commands. He is choosing to do this willingly. Sensorium / Orientation: alert Psych Psych Narrative: Depressed. Appearance: Negative for unkempt Skin General Skin Exam: Negative for jaundice or pallor Lesions: no lesions Rashes: no rashes MDM MDM MDM Narrative Medical decision making narrative: 66-year-old male who refuses to give me any history or follow any commands. He colin that he was [place] the other day. He seems to be depressed. His left him around 6 months ago. I will have my director of social media marketing talk to him. I did get history from his daughter at bedside. Patient had speak to my director of social media marketing. Initially she felt the patient may be able be discharged home. Daughter spoke to other friends of the patient and state that he has had issues recently that he is talked about being suicidal. Currently he is willingly not speaking to anybody again at this time. My director of social media marketing is working on possible placement of the patient in mental health facility. Our concern is he would spontaneously try to harm himself living alone and family an hour away. Patient was treated with p.o. Ativan 116 due to anxiety and him getting up and walking about the department. Patient has a history of hypertension his blood pressure is elevated. He has not been taking his blood pressure medications. He initially refused them I went and discussed it with him and he is willing to take his medications at this time. He will be written for hydralazine p.o. and metoprolol. Lab Data Attestation: I reviewed the patient's lab results. Lab results narrative: CBC White count 9.4. H&H 12.7 and 36. Sodium is 124 it has actually been lower than it previously. Gap of 9 normal BUN and creatinine. Glucose 140. Alcohol less than 3. Tox screen is negative. Labs: Laboratory Results - last 24 hr 01/28/22 01/28/22 01/28/22 10:37 10:37 10:37 WBC 9.4 RBC 4.02 L Hgb 12.7 L Hct 36.3 L MCV 90.3 MCH 31.6 MCHC 35.0 RDW Std Deviation 44.6 H RDW Coeff of Aaliyah 13.4 Plt Count 379 MPV 7.3 Immature Gran % (Auto) 1.100 H Neut % (Auto) 78.4 H Lymph % (Auto) 8.6 L [place] % (Auto) 10.8 H Eos % (Auto) 0.5 Baso % (Auto) 0.6 Absolute Neuts (auto) 7.4 Absolute Lymphs (auto) 0.81 L Nucleated RBC % 0 Sodium 124 L Potassium 3.8 Chloride 90 L Carbon Dioxide 25.0 Anion Gap 9 BUN 11 Creatinine 0.87 Estim Creat Clear Calc 82.39 Est GFR (MDRD) Af Amer 112 Est GFR (MDRD) Non-Af 92 BUN/Creatinine Ratio 12.6 Glucose 140 H Calcium 9.4 Urine Opiates Screen Urine Methadone Screen Ur Barbiturates Screen Ur Phencyclidine Scrn Ur Amphetamines Screen MDMA (Ecstasy) Screen U Benzodiazepines Scrn Urine Cocaine Screen U Cannabinoids Screen Ur Drug Screen Comment Ethyl Alcohol < 3.0 01/28/22 11:10 WBC RBC Hgb Hct MCV MCH MCHC RDW Std Deviation RDW Coeff of Aaliyah Plt Count MPV Immature Gran % (Auto) Neut % (Auto) Lymph % (Auto) [place] % (Auto) Eos % (Auto) Baso % (Auto) Absolute Neuts (auto) Absolute Lymphs (auto) Nucleated RBC % Sodium Potassium Chloride Carbon Dioxide Anion Gap BUN Creatinine Estim Creat Clear Calc Est GFR (MDRD) Af Amer Est GFR (MDRD) Non-Af BUN/Creatinine Ratio Glucose Calcium Urine Opiates Screen NEGATIVE Urine Methadone Screen NEGATIVE Ur Barbiturates Screen NEGATIVE Ur Phencyclidine Scrn NEGATIVE Ur Amphetamines Screen NEGATIVE MDMA (Ecstasy) Screen NEGATIVE U Benzodiazepines Scrn NEGATIVE Urine Cocaine Screen NEGATIVE U Cannabinoids Screen NEGATIVE Ur Drug Screen Comment Ethyl Alcohol Rhythm Strip Rhythm Strip: Sinus Rhythm Rate: 99 Ectopy: None EKG Initial EKG: Attestation: I personally reviewed and interpreted this EKG as follows: Interpretation: Sinus Rhythm and No Acute Injury Pattern Comments: Normal sinus rhythm rate of 99 no acute signs of SD nor ischemia nor arrhythmia. Discharge Plan Triage Chief Complaint: Mental Health ED Provider: Desmond Ortega Dx/Rx/DC Orders Clinical Impression: Depression, Hyponatremia, History of diabetes mellitus, History of acute leukemia Prescriptions: No Action metformin 500 MG tablet 1,000 mg PO BID RF: 0 enalapril maleate 10 MG tablet 20 mg PO BID RF: 0 omeprazole 40 MG capsule,delayed release(DR/EC) 40 mg PO QHS RF: 0 glucosamine [id number] 1 EACH tablet 2 tab PO TID RF: 0 famotidine 10 MG tablet 10 mg PO DAILY RF: 0 acetaminophen 650 MG tablet extended release 1,300 mg PO BID RF: 0 levothyroxine 100 MCG tablet 100 mcg PO DAILY RF: 0 metoprolol succinate 50 mg tablet extended release 24 hr 50 mg PO QHS RF: 0 hydralazine 25 mg tablet 25 mg PO BID 30 Days Qty: 60 RF: 0 pilocarpine HCl 5 mg tablet 10 mg PO BID RF: 0 lovastatin 40 mg tablet 40 mg PO DAILY RF: 0 metoprolol succinate 100 mg tablet extended release 24 hr 100 mg PO DAILY RF: 0 hydrochlorothiazide 25 mg tablet 25 mg PO DAILY RF: 0 gabapentin 100 mg capsule 100 mg PO TID RF: 0 Primary Care Provider: Michael Weber Referrals: Michael Weber MD [Primary Care Provider] - As soon as possible Activity Restrictions/Additional Instructions: Make sure you take the gun out of the house at this time. Follow-up with the counseling center or your primary care physician for further evaluation of depression. Return if you are feeling worse meaning that you feel suicidal or they might harm yourself or others. Add salt to your food currently patient sodium has been running low the last few times it checked your labs. Disposition Disposition: Psychiatric Hospital or Unit
[2022-01-28 10:44] LABS: Absolute Lymphocyte Count 0.81 X10^3/uL (0.83-4.51); Absolute Neutrophil Count 7.4 X10^3/uL (2.0-7.7); Basophil# 0.06 X10^3/uL; Basophil% 0.6 % (0-1); Eosinophil# 0.05 X10^3/uL; Eosinophils% 0.5 % (0-5); Hematocrit 36.3 % (40-54); Hemoglobin 12.7 g/dL (13.0-16.5); Lymphocyte # 0.81 X10^3/ul (0.83-4.51); Lymphocyte % 8.6 % (19-41); Mean Corpuscular Hgb 31.6 pg (27.0-32.0); Mean Corpuscular Volume 90.3 fL (80-94); Mean Platelet Vol. 7.3 fl (6.2-12.0); Monocyte# 1.01 X10^3/uL; Monocyte% 10.8 % (0-10); NRBC Flagged by Analyzer 0 % (0-5); Neutrophil # 7.35 X10^3/uL (2.7-7.7); Neutrophil % 78.4 % (47-70); Platelet Count 379 K/mm3 (150-450); RBC Distribution Width CV 13.4 % (11.6-14.6); RBC Distribution Width SD 44.6 fl (35.1-43.9); Red Blood Count 4.02 M/mm3 (4.6-6.2); White Blood Count 9.4 K/mm3 (4.4-11.0)
[2022-01-28 11:06] LABS: Anion Gap 9 (5-15); BUN 11 mg/dL (7-18); BUN/Creat Ratio 12.6 RATIO (10-20); Calcium,Total 9.4 mg/dL (8.5-10.1); Chloride 90 mmol/L (98-107); Creatinine, Serum 0.87 mg/dL (0.70-1.30); EST Glomerular Filtration Rate 92 mL/min (>60); Est Glom Filt Rate - Afr Amer 112 mL/min (>60); Estimated Creatinine Clearance 82.39 ml/min; Glucose 140 mg/dL (74-106); Potassium 3.8 mmol/L (3.5-5.1); Sodium Level 124 mmol/L (136-145)
[2022-01-28 11:16] LABS: Alcohol, Blood (Medical)-Serum < 3.0 mg/dL
--- NOTE | 2022-01-28 11:37 | CM.ED ---
Social Work Consult: Mental Health Referral source: Dr. Ortega Chief Complaint: Patient not acting right. Per daughter, brought patient to an ENT appointment this morning and patient would act like he could not hear us. Per ENT patient is able to hear. Patient daughter reports that patient also looked like he was going to cry. Patient daughter concerned for patient mental health and requested a mental health evaluation. Marital/Social History: , but . Patient spouse left patient in 2020 and patient is currently working on a divorce with spouse. 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 Patient has support from family but most of family lives out of town. Living situation: Lives alone. History: Denies Education/Employment History: Retired. Denies issues with comprehension or understanding. Mental Health Treatment/History: Denies. No history of inpatient psychiatric placement. Triggers/Stressors: Patient denies. Coping Skills: nothing helps. Substance Abuse Hx: Denies Risk to self/others: Patient denies suicidal thoughts, plans, intents. Patient denies homicidal thoughts, plans, intents. Patient denies self harming behaviors. Patient denies history of any suicidal thoughts, plans, intents. Patient denies legal issues/concerns. Mental Status Exam: A&Ox3 Appearance/General Behavior: Clean. Calm. Slumped. Mood/Affect: Depressed. Flat affect. Communication Pattern: Needed encouraged to respond to questions. Did not initiate conversation. Thought Process: Appropriate. Judgement: Fair Insight: Poor Assessment: Met with patient in room. Introduced self and licensed clinical social worker role. Patient agreeable to speak with this licensed clinical social worker. Patient daughter, Sammie present. Patient request for Sammie to stay in room during conversation and verbally agreed to this licensed clinical social worker speaking openly with Sammie present. Patient states to have blurry periods. Patient denies patient spouse leaving patient as a trigger for patient presenting depression and episodes. This licensed clinical social worker inquired if patient has any firearms in the home. Patient states no. Sammie then states yes you do dad. Patient continues to deny having a gun in the home. This licensed clinical social worker inquired what patient would like to happen today, patient shrugs shoulders. This licensed clinical social worker to go and speak with doctor and will be back to speak with patient and Sammie. While this licensed clinical social worker was out of patient room, Sammie requested for this licensed clinical social worker to come back for new information. This licensed clinical social worker entering patient room. Sammie looks at patient and asked have you had thoughts of killing yourself. Patient shakes head no. Sammie states to have been speaking with patient air quality instrument specialist and a family member and patient has expressed thoughts of suicide over the past few weeks. Patient continues to deny suicidal thoughts and then rolls into position, closes eyes and did not speak with this licensed clinical social worker or Sammie further. Dr. Ortega to patient room. This licensed clinical social worker updated Dr. Ortega on concerns for patient safety in the community. Dr. Ortega agrees that patient would benefit from inpatient psychiatric placement due to isolating self, expressing suicidal thoughts, limited to no engagement in any safety planning, denying to have firearms in the home. Sammie and patient updated. Patient continues to be laying in bed with eyes closed and not speaking with anyone. PLAN: Inpatient psychiatric placement. Will continue to follow. Kathya BUSH, SAMIRA
[2022-01-28 11:43] LABS: Amphetamine Urine VISTA NEGATIVE (<1000 ng/mL); Barbiturate Urine VISTA NEGATIVE (< 200 ng/mL); Benzodiazepine Urine VISTA NEGATIVE (< 200 ng/mL); Cocaine Urine VISTA NEGATIVE (< 300 ng/mL); Ecstacy Urine VISTA NEGATIVE (< 500 ng/mL); Methadone Urine VISTA NEGATIVE (< 300 ng/mL); PCP Urine VISTA NEGATIVE (< 25 ng/mL); THC Urine VISTA NEGATIVE (< 50 ng/mL); Vista UDS pH Range 7
--- NOTE | 2022-01-28 12:06 | CM.ED ---
Social Work Telephone call to [facility]. There are open beds. Clinical information faxed. Edi to get back to this manager social services. Will continue to follow. Kathya BUSH, SAMIRA
--- NOTE | 2022-01-28 12:17 | ED.RN ---
PT PERMITTED TO KEEP PANTS ON, NO SITTER PER CASE MANAGEMENT AND ED MD
--- NOTE | 2022-01-28 12:59 | CM.ED ---
Social Work Telephone call from [facility]. Yany request to speak with patient. This social media sr strategy manager brought portable phone to patient room. Patient is not open to speaking with Yany but did provide verbal permission for Yany to speak with patient daughter. Yany speaking with patient daughter. Will continue to follow. Kathya BUSH, GAVIOTAS
[2022-01-28] MEDS: LORazepam 1 MG Tablet PO (13:16)
--- NOTE | 2022-01-28 13:22 | ED.RN ---
pt has been pacing in ed. tried to exit the back of the depatment. pt was escorted back to room and ativan ordered to assist with his restlessness. pt initally aggreed to take medication, but then throw pill onto the floor. dr agreed to an IM medication to assist. asra avalos [id number]
[2022-01-28] MEDS: Ziprasidone IM 20 MG/ML VIAL IM (13:57)
--- NOTE | 2022-01-28 14:19 | CM.ED ---
Social Work Telephone call from [facility], declined due to not meeting criteria of immediate risk. Telephone call to [facility], intake. [facility] reports to have open beds. [facility] Clinical information faxed. Will continue to follow. Kathya BUSH, SAMIRA
--- NOTE | 2022-01-28 16:09 | EKG12_ITS ---
Test Reason : MENTAL MILES Blood Pressure : / mmHG Vent. Rate : 099 BPM Atrial Rate : 099 BPM P-R Int : 142 ms QRS Dur : 090 ms QT Int : 354 ms P-R-T Axes : 051 012 025 degrees QTc Int : 454 ms Normal sinus rhythm Normal ECG Confirmed by DARIA BEDOLLA, PATTI ([id number]), managing editor MICHAELA MOMIN ([id number]) on 01/29/2022 1:44:48 PM Referred By: JAJA Confirmed By:PATTI HUFF MD
[2022-01-28] MEDS: hydrALAZINE 10 MG Tablet PO (16:33)
[2022-01-28] MEDS: Metoprolol(XL)Succ 50 MG Tablet PO (16:33)
[2022-01-28 17:19] LABS: Bacteria 0 SEEN /hpf (None Seen); Mucous, Urine 0 SEEN /hpf (<or=2+); Red Blood Cells-Urine 0 SEEN /hpf (0-5)
[2022-01-28 17:28] LABS: Color, Urine Yellow (Yellow); Glucose, Dipstick 50 mg/dl (Normal); Ketone-Dipstick Negative (Negative); Leukocyte Esterase-Dipstick Negative /ul (Negative); Nitrite-Dipstick Negative (Negative); Occult Blood-Urine Negative /ul (Negative); Protein-Dipstick 30 mg/dl (Negative); Urine Bilirubin Dipstick Negative (Negative); Urine Clarity Clear (Clear); Urine Urobilinogen Normal (Normal)
[2022-01-28 18:19] LABS: Squamous Epithelial Cells - UA 0-5 SEEN /hpf (0-5); White Blood Cells 0-5 SEEN /hpf (0-5)
--- NOTE | 2022-01-28 19:38 | ED.RN ---
PT OBSERVED WITH STREET CLOTHES, CONCERNS PT MAY PUT THEM ON AND ELOPE. ALL CLOTHING REMOVED FROM ROOM, PT ALSO REMOVED PANTS AND SHOES WITHOUT DIFFICULTY. PT COOPERATIVE, GIVEN COOKIES, YOGURT, MILK AND COFFEE PER REQUEST. PT SITTING IN BED EATING, NO SIGNS OF DISTRESS.
--- NOTE | 2022-01-28 19:57 | CM.ED ---
Social Work Telephone call to T[facility]ie [facility] to check on status of referral. unable to accept any patients until tomorrow. Telephone call to [facility] [facility], voicemail left for intake. Will continue to follow. Kathya BUSH, SAMIRA
--- NOTE | 2022-01-28 21:00 | CM.ED ---
[facility] Patient [facility] by Dr. Torres to the Dual diagnosis unit. Nurse to call report to [phone]. Patient and medical team updated. Telephone call to patient daughter, patient daughter updated on above. [facility] Kathya BUSH, SAMIRA
--- NOTE | 2022-01-28 23:16 | ED.RN ---
CALLED PHYSICIANS FOR A RIDE AROUND 2029 WAS TOLD THAT THEY WOULD BE HERE AT 11. THE NEW ETA IS GOING TO BE AFTER MIDNIGHT DUE TO A FUEL STOP AND SWITCHING OVER TO A MEDIC TRUCK.
[2022-01-29 00:04] VITALS: RESP 14
[2022-01-29 00:18] VITALS: BP 172/85; PULSE 102; RESP 15; O2SAT 99
[2022-01-29 00:21] LABS: Bedside Glucose 168 mg/dL (74-106)
== END 2022-01-29 00:22 ==
PROVIDERS: Student in an Organized Health Care Education/Training Program; Emergency Provider Emergency Medicine; PCP Family Medicine; Visit Provider Emergency Medicine
DX: F32.A Depression, unspecified (principal); E11.9 Type 2 diabetes mellitus without complications; E87.1 Hypo-osmolality and hyponatremia; I10 Essential (primary) hypertension; E78.5 Hyperlipidemia, unspecified; R45.851 Suicidal ideations; Z79.899 Other long term (current) drug therapy; Z79.84 Long term (current) use of oral hypoglycemic drugs; Z87.891 Personal history of nicotine dependence
CPT/HCPCS: 36415; 80048; 80307; 81001; 82077; 82962; 85025; 87811; 93005; J3486

== ENCOUNTER → 2022-07-14 | Outpatient (CLI) | payer MEDICARE, SELFPAY ==
[2022-07-14 11:54] LABS: Anion Gap 8 (5-15); BUN 10 mg/dL (7-18); BUN/Creat Ratio 11.5 RATIO (10-20); Calcium,Total 9.6 mg/dL (8.5-10.1); Chloride 90 mmol/L (98-107); Creatinine, Serum 0.87 mg/dL (0.70-1.30); EST Glomerular Filtration Rate 93 mL/min (>60); Est Glom Filt Rate - Afr Amer 113 mL/min (>60); Glucose 107 mg/dL (74-106); Potassium 4.3 mmol/L (3.5-5.1); Sodium Level 124 mmol/L (136-145)
== END | disposition home or self-care (01) ==
LOC: LAB 10:26
PROVIDERS: PCP Family Medicine; Referring Provider Registered Nurse; Visit Provider Registered Nurse
DX: Z12.5 Encounter for screening for malignant neoplasm of prostate (principal); E87.1 Hypo-osmolality and hyponatremia
CPT/HCPCS: 36415; 80048; 84153; G0103

== ENCOUNTER → 2022-07-30 | Outpatient (CLI) | payer MEDICARE, SELFPAY ==
--- NOTE | 2022-07-30 07:31 | CT_ITS ---
STUDY: CT ABDOMEN AND PELVIS WITH CONTRAST REASON FOR EXAM: Male, 67 years old. Abd pain -- IV contrast only . Bilateral lower abdominal pain. History of leukemia and cancer of the tongue. RADIATION DOSAGE (If Supplied By Facility): CTDIvol = ( 16.08 ) mGy, DLP = ( 855.90 ) mGycm TECHNIQUE: Transaxial images were obtained from the dome of the diaphragm to the symphysis pubis without oral contrast. IV 75mL Isovue-[id number] was administered. Sagittal and coronal images were reconstructed. Individualized dose optimization techniques were used for this CT. COMPARISON: None. FINDINGS: 1.2 cm bulla in the posterior medial aspect of the right lower lobe. There is evidence of a coronary artery calcification. There is decreased attenuation of the liver consistent with steatosis. There are multiple small gallstones. There are multiple benign calcified granulomata of the spleen. Normal pancreas. Normal bilateral adrenal glands. Normal right kidney. Normal left kidney. There is a moderate-sized hiatal hernia. Normal small intestine. There are multiple colonic diverticula consistent with diverticulosis. The appendix is visualized and appears normal. There is diffuse atherosclerotic calcification of the abdominal aorta, without a demonstrated aneurysm. Normal inferior vena cava. There is borderline retroperitoneal lymphadenopathy with enlarged nodes no greater than 10mm in the short axis diameter. Questionable soft tissue prominence at the base of the bladder on the left side with bladder wall thickening. There is enlargement of the prostate gland. It measures 4.6 cm by 5.7 cm. This causes indentation at the bladder base Right inguinal hernia containing nondilated small bowel loops. Small left inguinal hernia containing fat. There are mild degenerative changes of the visualized lumbar spine. CT/Abdomen/Pelvis WITH Contrast IMPRESSION: Moderate sized hiatal hernia. Prostatic enlargement with indentation of the bladder base. Possible soft tissue prominence at the base of the bladder more prominent on the left side. Multiple small gallstones. Electronically Signed: Conner Gillespie MD at 9:27 EDT ,
[2022-07-30 08:42] LABS: Hemoglobin A1c 5.8 % (3.8-5.6)
== END | disposition home or self-care (01) ==
PROVIDERS: PCP Family Medicine; Visit Provider Surgery
DX: Z01.818 Encounter for other preprocedural examination (principal); R73.09 Other abnormal glucose; R10.9 Unspecified abdominal pain
CPT/HCPCS: 36415; 74177; 83036; Q9967; A4216

== ENCOUNTER → 2022-08-27 | Outpatient (CLI) | payer MEDICARE, SELFPAY ==
[2022-08-27 10:03] LABS: Anion Gap 8 (5-15); BUN 11 mg/dL (7-18); BUN/Creat Ratio 11.9 RATIO (10-20); Chloride 91 mmol/L (98-107); Creatinine, Serum 0.92 mg/dL (0.70-1.30); EST Glomerular Filtration Rate 87 mL/min (>60); Est Glom Filt Rate - Afr Amer 105 mL/min (>60); Glucose 116 mg/dL (74-106); Potassium 4.3 mmol/L (3.5-5.1); Sodium Level 124 mmol/L (136-145)
== END | disposition home or self-care (01) ==
PROVIDERS: PCP Family Medicine; Visit Provider Family Medicine
DX: E87.1 Hypo-osmolality and hyponatremia (principal)
CPT/HCPCS: 36415; 80048

== ENCOUNTER → 2022-12-12 | Outpatient (CLI) | payer MEDICARE, SELFPAY | END | disposition home or self-care (01) | LOC: LAB 13:29 | PROVIDERS: PCP Family Medicine; Visit Provider Surgery | DX: Z22.322 Carrier or suspected carrier of Methicillin resistant Staphylococcus aureus (principal) | CPT/HCPCS: 87081 ==

== ENCOUNTER 2022-12-15 21:13 | Observation (INO) | payer MEDICARE, SELFPAY ==
[2022-12-15] VITALS (16 sets, daily range): BP systolic 90–183; BP diastolic 51–93; PULSE 55–74; RESP 14–18; TEMP 36.1–37.1; O2SAT 79–98; BMI 25.9; BMI 25.2
[2022-12-15] MEDS: Lactated Ringers 1,000 ML 15 ML IV ×2 (10:15→17:00)
[2022-12-15 10:17] LABS: Hematocrit 36.6 % (40-54); Hemoglobin 12.6 g/dL (13.0-16.5); Mean Corp Hgb Conc 34.4 g/dL (32-36); Mean Corpuscular Hgb 30.9 pg (27.0-32.0); Mean Corpuscular Volume 89.7 fL (80-94); Platelet Count 305 K/mm3 (150-450); RBC Distribution Width CV 13.5 % (11.6-14.6); RBC Distribution Width SD 44.7 fl (35.1-43.9); Red Blood Count 4.08 M/mm3 (4.6-6.2); White Blood Count 8.8 K/mm3 (4.4-11.0)
[2022-12-15 10:40] LABS: Hemoglobin A1c 5.7 % (3.8-5.6)
[2022-12-15 10:51] LABS: Anion Gap 7 (5-15); BUN 12 mg/dL (7-18); BUN/Creat Ratio 14.5 RATIO (10-20); Calcium,Total 9.4 mg/dL (8.5-10.1); Chloride 95 mmol/L (98-107); Creatinine, Serum 0.83 mg/dL (0.70-1.30); EST Glomerular Filtration Rate 98 mL/min (>60); Est Glom Filt Rate - Afr Amer 119 mL/min (>60); Estimated Creatinine Clearance 79.64 ml/min; Glucose 97 mg/dL (74-106); Potassium 4.3 mmol/L (3.5-5.1); Sodium Level 128 mmol/L (136-145); Thyroid Stim Hormone (TSH) 0.78 uIU/mL (0.358-3.74)
--- NOTE | 2022-12-15 11:45 | HP.PCM_ITS ---
History and Physical Date of Admission: 12/15/22 [facility] [address] [place] [address] OFFICE VISIT Date of Service:? 07/23/22 MR#: [id number] Acct: [id number] Name:HERMAN TURNER Rep #: [id number] : 1955 ? ? Provider: Dr. Keyon De La Fuente MD Age/Sex:? 67/M ? ? Location: [facility] Status: Signed Intake Vital Signs ? 01/28/2210:04 07/23/2207:35 Height 5 ft 9 in 5 ft 8 in Weight: ? 165 lb 2 oz BMI ? 25.1 BP ? 150/74 H Blood Pressure Location ? Rt brachial Position ? Sitting Respiration ? 16 Pulse ? 67 Pulse Source ? Monitor Temp ? 97.7 F L Temp Source ? Temporal Pulse Oximetry (%) ? 99 Oxygen Delivery Method ? 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 Required: No Is patient in pain?: No Allergies latex Adverse Reaction (Verified 07/23/22 07:36) Rash Medications enalapril maleate 10 mg tablet 20 mg PO BID 01/26/18 [History Confirmed 07/23/22] metformin 500 mg tablet 1,000 mg PO BID 01/26/18 [History Confirmed 07/23/22] omeprazole 40 mg capsule,delayed release 40 mg PO QHS 01/26/18 [History Confirmed 07/23/22] acetaminophen 650 mg tablet,extended release 1,300 mg PO BID 02/06/21 [History Confirmed 07/23/22] levothyroxine 100 mcg tablet 100 mcg PO DAILY 02/06/21 [History Confirmed 07/23/22] metoprolol succinate 50 mg tablet,extended release 24 hr 50 mg PO QHS 01/26/22 [History Confirmed 07/23/22] hydralazine 25 mg tablet 25 mg PO BID 30 days #60 tabs 01/27/22 [Rx Confirmed 07/23/22] lovastatin 40 mg tablet 40 mg PO DAILY 01/28/22 [History Confirmed 07/23/22] metoprolol succinate 100 mg tablet,extended release 24 hr 100 mg PO DAILY 01/28/22 [History Confirmed 07/23/22] pilocarpine HCl 5 mg tablet 10 mg PO BID 01/28/22 [History Confirmed 07/23/22] aspirin 81 mg tablet,delayed release 81 mg PO DAILY 07/23/22 [History Confirmed 07/23/22] mirtazapine 15 mg tablet 15 mg PO DAILY 07/23/22 [History Confirmed 07/23/22] nystatin 100,000 unit/mL oral suspension 5 ml PO Q6H 07/23/22 [History Confirmed 07/23/22] pilocarpine HCl 5 mg tablet (Salagen (pilocarpine)) 5 mg PO TID 07/23/22 [History Confirmed 07/23/22] ranitidine HCl 150 mg tablet mg PO 07/23/22 [History Confirmed 07/23/22] PFSH Medical History?(Updated 07/23/22 @ 08:[address] Keyon De La Fuente MD) Acid reflux Diabetes Former smoker Hearing loss, left Hearing loss, right History of prostate cancer History of throat cancer History of tongue cancer HLD (hyperlipidemia) Hypertension Surgical History?(Updated 07/23/22 @ 07:34 by Kaye Thursday) H/O bone marrow transplant History of glossectomy History of tracheostomy Hx of neck surgery S/P dilatation of esophageal stricture S/P TURP Family History?(Updated 07/23/22 @ 07:35 by Kaye Thursday) Mother Diabetes Gout Heart disease Kidney disease Myocardial infarctionFather Diabetes Gout Cancer Heart disease Myocardial infarctionGrandmother Diabetes Social History? household members:? none Smoking Status:? Former smoker how long ago did patient quit smoking:? Quit 27 years ago, smoked 2-3 ppd since teen, used chew also. alcohol intake:? never substance use type:? does not use HPI HPI HPI: Patient is a 67-year-old male who presents for bulge of the right groin.? This finding was first noticed by patient 1 to 2 months ago.? When he had a follow-up with Dr. Chaidez of urology he raise this issue and was informed he had a hernia on the right side and probable small hernia on the left side as well.? 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 He states that although he noticed the bulging, he has not noticed any pain or discomfort.? He also believes it has remained stable in size.? He confirms that his bowel movements are regular as they always have been?however, he notes that have been loose for some time due to his use of metformin.? He goes on to deny any other obstructive symptoms. Regarding patient's history of diabetes, he states that his blood sugars are well controlled.? Indeed, his last A1c showing from January 2021 was 5.8.? He denies any history of staph or skin infections.? He states that approximately 7 months ago he had an unexplained skin rash that was checked out by financial planning analyst and was initially refractory to usual topical therapies, but responded completely with initiation of systemic steroids. Patient has a remote personal history of smoking?he went through cessation in 1994. Mr. Boothe has a history of throat cancer and required glossectomy with recon struction, but probably reports that he is almost 16 years cancer free.? He notes that postoperatively from his procedure he required radiation treatments that were toxic to his bone marrow and required a bone marrow transplant. Mr. Boothe has a history of hypertension, but states this is now well controlled on 3 agents. Pertinent surgical history includes: No abdominal surgeries. Mr. Boothe Quest that any intervention that may be required for his hernia be completed in either November or December as this is his slow time for his employment at the [employer]. ROS General General: Yes weight change; No appetite, fatigue, colon cancer, breast cancer or weakness HEENT HEENT: Yes difficulty swallowing; No eye injury, eye surgery, swollen glands or hoarseness Endo Endocrine: No thyroid disease, diabetes mellitus, thyroid cancer, Hair loss, heat intolerance or cold intolerance Skin Skin: No rash or changing moles Musc Musculoskeletal: Yes back problems and arthritis; No rheumatoid arthritis, gout or joint pain Cardio Cardiovascular: Yes high blood pressure; No murmur, pacemaker, heart disease, atrial fibrillation, heart attack, heart stent, palpitations, shortness of breat with exertion or chest pain Psych Psychiatric: No depression, anxiety or hearing voices Resp Respiratory: No shortness of breath, No sleep apnea, No cough, No COPD, No asthma, No emphysema and No wheezing Gastro Gastrointestinal: No abdominal pain, No nausea or vomiting, No diarrhea, No constipation, No blood in stool, Yes acid reflux, No hemorrhoids, No ulcers, No gallbladder problem and No black,tarry stools Abe Hematologic: No blood thinners, No blood disorders, No bleeding, No anemia and No blood clots Neuro Neurologic: No system reviewed and no additional complaints, except as documented, No as per HPI, No abnormal gait, No abnormal hearing, No abnormal movements, No abnormal speech, No behavioral changes, No burning sensations, No confusion, No convulsions, No disequilibrium, No dizziness, No localized weakness, No frequent falls, No headache(s), No lack of coordination, No loss of vision, No memory loss, No numbness, No other visual disturbances, No radicular pain, No restless legs, No sensory deficit, No syncope, No tingling, No tremor(s), No weakness and No other Exam Const General: cooperative and well developed Orientation: alert, awake and oriented x3 Neck Other: Radiation change in scars to anterior neck Resp Effort & Inspection: normal respiratory effort Auscultation: no rales, no rhonchi and no wheezes Cardio Rate: regular rate Rhythm: regular rhythm Heart Sounds: S1 normal and S2 normal GI Inspection: normal to inspection Other: Nondistended, soft, nontender to palpation x4 quadrants Other: Bilateral testicles are descended and palpable within the scrotum.? Patient has a moderately large right inguinal hernia with a indirect defect on the right which appears to contain some fatty tissue but is freely reducible.? I also do believe a feel a smaller indirect defect on the left. 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 He is referred from Dr. Chaidez of urology.? He denies any significant symptoms from his hernia, but is interested in having it repaired so that he does not increase his risk for complications.? I have shared with him that I believe he has a left-sided inguinal hernia on exam.? I would like to confirm this, if possible, with a CAT scan of the abdomen pelvis as a means of preoperative planning. The larger right hernia is freely reducible on exam.? I have shared with him I believe he would be an excellent candidate for a minimally invasive repair with mesh and with this surgical plan we could address both hernias simultaneously.? As previously mentioned, Mr. Boothe is interested in holding off on intervention until November so that he can commit to the lifting restrictions postoperatively that were discussed.? I have advised caution in the interim time and given him warning signs that should move him to present for emergency evaluation should he experience them.? I have also offered to write him a prescription for a hernia belt/truss, but he declines at this time?reiterating that he truly is asymptomatic. ?Plan: ? CT of the abdomen pelvis with IV contrast.? We will telephone patient with results ? Update hemoglobin A1c ? Tentatively plan for minimally invasive bilateral inguinal hernia repair with mesh in early 2022.? We will look to confirm these plans in October I have examined the patient and the H&P has been reviewed. There are no clinical changes since date of exam. Patient states that his blood pressures have been running high, but his objective is been to keep that under 200 mmHg which she has done. We also clarified postoperative expectations?including no lifting greater than 10 pounds for 5 weeks. He reports that he was under the impression that this was a 20 pound weight limit for 2 weeks. After confirming his acceptance of this restriction, he denied any further questions. We will therefore proceed to the operating room for right possible left robot-assisted inguinal hernia repair with mesh.
[2022-12-15] MEDS: Cefazolin 2 GM in 0.9% Normal Saline 100 ML IV (12:05)
[2022-12-15] MEDS: Bupivacaine 0.5% PF 10 ML VIAL (12:44)
--- NOTE | 2022-12-15 16:54 | OP.PCM_ITS ---
Problems Associated Problem List Diagnoses (1) S/P inguinal hernia repair using synthetic patch: Report of Operation Date of Procedure: 12/15/22 Pre-Operative Diagnosis: Bilateral inguinal hernias Post-Operative Diagnosis: 1. Pantaloon type right inguinal hernia 2. Indirect left inguinal hernia Surgery/Procedure Performed:: Robot-assisted repair of bilateral inguinal hernia with mesh Description of Surgical Findings:: ? Pantaloon type hernia with moderate-sized cord lipoma on the right ? Left indirect hernia (small size) and no associated cord lipoma Surgeon: Keyon De La Fuente computer forensic examiner: Desmond Bloom computer forensic examiner: Selene Ward Type of Anesthesia: General/Supplemental Anesthesiologist: Anival Monge Specimen's removed: NA Estimated Blood Loss (mL): 25 Description of Procedure: After appropriate identification the preoperative holding area the patient was brought to the operating room where he was positioned supine on the operating table. Preoperative antibiotics were completed and the patient was administered a general anesthetic. Patient's abdomen was then prepped and draped in usual sterile fashion. Formal timeout followed to confirm patient and procedure. Procedure was begun with a Woodard entry in the epigastrium given patient's reported history of a left upper quadrant feeding tube. A 12 mm balloon trocar was placed through this site and once pneumoperitoneum reached a set point pressure of 12 mmHg follow-up laparoscopic investigation revealed no inadvertent injury to the viscera below. Fortunately, it also revealed no evidence of intraperitoneal adhesions. In looking into the pelvis, I did visualize a large right-sided direct inguinal hernia defect. Under laparoscopic visualization, a second robot (8 mm) port was placed a hand's breath left of this index port and then a final trocar was placed in the right upper quadrant. Patient was positioned in Trendelenburg and I performed a local block of the ilioinguinal nerves using 12 mL local anesthetic under laparoscopic visualization. The robot was docked in standard fashion. Robotically a peritoneal flap was created on the right and was bluntly dissected to expose the medial parietal compartment and lateral visceral compartments. Medially I could visualize the pubic tubercle and Parish's ligament while laterally I extended the dissection down to the level of the ASIS. A pantaloon type hernia was encountered with a larger direct component. A medium cord lipoma was identified alongside the indirect component. Carefully the hernia sac was grasped and the adherent soft tissues were swept away taking care to protect the cord structures inferiorly. Eventually the hernia sac was completely reduced and the cord lipoma was removed from the transversalis sling and from the cord structures inferiorly. The blood supply to this lipoma was maintained and it was left within the peritoneal pocket. The peritoneal flap was inspected to ensure that cord was appropriately parietalized and there was no pulling of the cord structures or the viscera deeply over the psoas using the pull test. Then attention was turned to the patient's left side where there was evidence of a smaller indirect defect. Again, a peritoneal flap was created on this side and dissection was carried down in similar fashion to Parish's ligament medially and laterally over the psoas at the same depth. Here there was an obvious indirect defect. Manual traction was applied to the hernia sac and selective electrocautery was used to separate it from the cord structures inferiorly. Ultimately, I was able to visualize complete reduction of the hernia sac and again performed the pull test to ensure that there was no tenting of structures that may compromise the future mesh lie. Once satisfied with this dissection, a Bard 3D max, size large, heavy weight mesh was placed into the abdomen for the right side and a Bard 3D max, size large, mid weight mesh for the left side along with suture. Each mesh was positioned within the respective preperitoneal pocket so that there was good medial and inferior overlap. Then the right mesh was tacked to the abdominal wall at the admuniculum and laterally in a partial-thickness bite of the abdominal wall using a 3-0 Vicryl suture. The peritoneal flap was then closed with a running 3-0 V-Loc suture taking care to conceal the barbs of the suture beneath the peritoneum. I then transitioned to the left side and this mesh was tacked in similar fashion as had been done on the right side using 3-0 Vicryl. Again, the peritoneal flap was closed with 3 oh V-Loc suture. Once the flap closure was complete, I undertook repair of peritoneal defects bilaterally with 3-0 Vicryl. With the peritoneal defects closed, sutures were systematically removed from the peritoneum and the pneumoperitoneum was evacuated before removing the trocars. The midline, 12 mm Woodard port site fascia was closed under direct visualization using 0 Vicryl in a [id number] fashion. Additional local anesthetic was injected into the fascia. The skin of each port site was closed at the skin with running 4-0 Monocryl in a subcuticular fashion. Steri-Strips and OpSite's were used as dressings. Patient's testicles were confirmed within the scrotum. Patient was then awoken from anesthetic and transferred to PACU for ongoing recovery. Mesh Right Bard 3D max mesh. Lot [facility] 1977, reference [id number]. Use by 12/30/2026. Left Bard 3D max mid anatomical mesh. Lot [employer] AB 1 2, reference [id number]. Used by 09/29/2026. Grafts/Implants Used: Right Bard 3D max mesh LOT [facility] 1977, reference [id number]. Exp 12/30/26 Complications None Admit VTE Documentation VTE Mechan Device Prophylaxis: SCD's
--- NOTE | 2022-12-15 16:59 | DCINST_ITS ---
Discharge Instructions Diet Discharge Diet: No restrictions Activity Discharge Activity: May Not Drive (While taking narcotic pain medication) and May Shower May shower in (days): 2 Ice area for (Minutes): 20 Lifting Restrictions: No lifting greater than 15 pounds for the next 4 weeks Dressing / Incision Call your doctor if your incision/area has: Continuous Slow Oozing, Increased Pain/ Swelling, Increased Redness, Foul Smelling Discharge and Swelling at the incision site Call your doctor if you observe: Fever of 101 or Higher Change Dressing in: 2 days (Please leave Steri-Strips intact until they fall off spontaneously or are taken off at your follow-up visit) Remove Dressing in: 2 days Cleanse incision/area with: Soap & Water and Keep Dressing Clean & Dry Follow Up Care Please Follow Up With: Keyon De La Fuente MD When: 1 week postop Test Results: Test results from this visit will be discussed in further detail at your follow- up appointment, if applicable. Discharge Plan Admission Primary Reason for Your Visit: Bilateral inguinal hernias Attending Provider: Keyon De La Fuente Primary Care Provider: Michael Weber Discharge Orders/Prescriptions Prescriptions: New oxycodone 5 mg tablet 5 mg PO Q6H PRN (Reason: pain) 5 Days Qty: 14 0RF No Action aspirin 81 mg tablet,delayed release (DR/EC) 81 mg PO DAILY mirtazapine 15 mg tablet 15 mg PO QHS metformin 500 MG tablet 1,000 mg PO BID enalapril maleate 10 MG tablet 20 mg PO BID omeprazole 40 MG capsule,delayed release(DR/EC) 40 mg PO QHS acetaminophen 650 MG tablet extended release 1,300 mg PO BID levothyroxine 100 MCG tablet 100 mcg PO DAILY metoprolol succinate 50 mg tablet extended release 24 hr 50 mg PO QHS Label Comments: TAKE 1 TABLET BY MOUTH ONCE DAILY hydralazine 25 mg tablet 25 mg PO BID 30 Days Qty: 60 0RF pilocarpine HCl 5 mg tablet 10 mg PO BID Label Comments: TAKE 2 TABLETS BY MOUTH TWICE DAILY lovastatin 40 mg tablet 40 mg PO DAILY Label Comments: TAKE 1 TABLET BY MOUTH AT BEDTIME metoprolol succinate 100 mg tablet extended release 24 hr 100 mg PO DAILY Label Comments: TAKE 1 TABLET BY MOUTH ONCE DAILY famotidine [Pepcid AC] 20 mg Tablet 20 mg PO DAILY Zyrtec 10 mg Capsule 10 mg PO DAILY Salt Tab 1 tab PO/SL 4X/DAY cholecalciferol (vitamin D3) [Vitamin D3] 25 mcg (1,000 unit) Tablet 50 mcg PO DAILY Referrals / Follow Up: Michael Weber MD [Primary Care Provider] - Disposition Disposition (needs filled in before D/C Order can be placed): Home, Self Care
[2022-12-15 18:01] LABS: Bedside Glucose 133 mg/dL (74-106)
[2022-12-15] MEDS: oxyCODONE 5 MG Tablet PO (20:15)
[2022-12-15] MEDS: Tamsulosin HCl 0.4 MG Capsule PO (21:00)
[2022-12-15 23:40] LABS: Bedside Glucose 149 mg/dL (74-106)
[2022-12-16 03:50] VITALS: BP 156/69; PULSE 82; RESP 17; TEMP 36.6; O2SAT 96
[2022-12-16 06:21] LABS: Bedside Glucose 131 mg/dL (74-106)
[2022-12-16] MEDS: metFORMIN HCl 1,000 MG Tablet 1000 MG PO (08:33)
[2022-12-16 08:34] VITALS: PULSE 71
[2022-12-16] MEDS: Metoprolol(XL)Succ 100 MG Tablet PO (08:34)
[2022-12-16] MEDS: Tamsulosin HCl 0.4 MG Capsule PO (08:34)
[2022-12-16] MEDS: Lisinopril 20 MG Tablet PO (08:34)
[2022-12-16] MEDS: Acetaminophen 325 MG Tablet 650 MG PO (08:39)
[2022-12-16 09:12] VITALS: BP 156/90; PULSE 74; RESP 18; TEMP 36.6; O2SAT 98
--- NOTE | 2022-12-16 09:33 | PHA.DC.MR ---
Pharmacy Service has performed discharge medication reconciliation for this patient. The patient's discharge medication list was reviewed for discrepancies and discrepancies were resolved. Home Medications enalapril maleate 10 mg tablet 20 mg PO BID 01/26/18 metformin 500 mg tablet 1,000 mg PO BID 01/26/18 omeprazole 40 mg capsule,delayed release 40 mg PO QHS 01/26/18 acetaminophen 650 mg tablet,extended release 1,000 mg PO BID 02/06/21 levothyroxine 100 mcg tablet 100 mcg PO DAILY 02/06/21 metoprolol succinate 50 mg tablet,extended release 24 hr 50 mg PO QHS 01/26/22 hydralazine 25 mg tablet 25 mg PO BID 30 days #60 tabs 01/27/22 lovastatin 40 mg tablet 40 mg PO DAILY 01/28/22 metoprolol succinate 100 mg tablet,extended release 24 hr 100 mg PO DAILY 01/28/22 pilocarpine HCl 5 mg tablet 10 mg PO BID 01/28/22 aspirin 81 mg tablet,delayed release 81 mg PO DAILY 07/23/22 mirtazapine 15 mg tablet 15 mg PO QHS 07/23/22 Salt Tab 1 tab PO/SL 4X/DAY 12/12/22 cetirizine 10 mg capsule (Zyrtec) 10 mg PO DAILY 12/12/22 cholecalciferol (vitamin D3) 25 mcg (1,000 unit) tablet (Vitamin D3) 50 mcg PO DAILY 12/12/22 famotidine 20 mg tablet (Pepcid AC) 20 mg PO DAILY 12/12/22 oxycodone 5 mg tablet 5 mg PO Q6H PRN pain 5 days #14 tabs 12/15/22
--- NOTE | 2022-12-16 10:21 | PCM.PROGNOTE ---
Subjective Subjective Patient is a 67 y/o M I am following in conjunction with Dr. De La Fuente. Patient notes abdominal discomfort. He denies nausea, vomiting, fever. He was hospitalized post-procedure for urinary retention. Patient has since been able to void well. Objective Data Objective Data Vital Signs: Vital Signs Temp Pulse Resp BP Pulse Ox O2 Del Method O2 Flow Rate 97.8 F 74 18 156/90 H 98 Room Air 2 12/16/22 09:12 12/16/22 09:12 12/16/22 09:12 12/16/22 09:12 12/16/22 09:12 12/16/22 09:12 12/15/22 22:30 Oxygen Flow Rate (L/min) 2 Oxygen Delivery Method Room Air Weight: 165 lb 15.776 oz Body Mass Index (BMI) 25.2 Intake & Output: Intake and Output for Last 24 Hours 12/14/22 12/15/22 12/16/22 23:59 23:59 23:59 Intake Total 2430 / 2430 60 / 60 Output Total 730 / 730 350 / 350 Balance 1700 / 1700 -290 / -290 Lab / Micro Data Result Diagrams: 12/15/22 10:10 12/15/22 10:10 Labs: Laboratory Results - last 24 hr 12/15/22 10:10: Sodium 128 L, Potassium 4.3, Chloride 95 L, Carbon Dioxide 26.0, Anion Gap 7, BUN 12, Creatinine 0.83, Estim Creat Clear Calc 79.64, Est GFR (MDRD) Af Amer 119, Est GFR (MDRD) Non-Af 98, BUN/Creatinine Ratio 14.5, Glucose 97, Calcium 9.4, TSH 0.78 12/15/22 10:10: Hemoglobin A1c 5.7 H 12/15/22 17:40: POC Glucose 133 H 12/15/22 23:18: POC Glucose 149 H 12/16/22 06:02: POC Glucose 131 H Physical Exam GI soft to palpation Palpation: tender other (generalized) Assessment & Plan Assessment/Plan (1) S/P inguinal hernia repair using synthetic patch: PLAN: Patient is now voiding Will prescribe Flomax at bedtime x 14 days Patient is ready for discharge Charges/Coding Visit Charges Inpatient E&M: 54111 Subs Hosp L1 (no charge; post-op)
== END 2022-12-16 13:35 | disposition home or self-care (01) ==
LOC: SDC 21:56 → MS3 21:56
PROVIDERS: Anesthesiology; Admitting Provider Surgery; PCP Family Medicine; Referring Provider Surgery; Visit Provider Surgery
PROC: (CPT 49650; principal; 2022-12-15 11:15)
DX: K40.20 Bilateral inguinal hernia, without obstruction or gangrene, not specified as recurrent (principal); E11.9 Type 2 diabetes mellitus without complications; I10 Essential (primary) hypertension; R33.9 Retention of urine, unspecified; Z87.891 Personal history of nicotine dependence; Z79.84 Long term (current) use of oral hypoglycemic drugs; D17.6 Benign lipomatous neoplasm of spermatic cord; Z79.899 Other long term (current) drug therapy; E78.5 Hyperlipidemia, unspecified; K21.9 Gastro-esophageal reflux disease without esophagitis; E07.9 Disorder of thyroid, unspecified
CPT/HCPCS: 49650; S2900; 00840; 80048; 82962; 83036; 84443; 85027; 99221; J7120; A4216; C1781; G0378; J2405

== ENCOUNTER → 2023-07-27 | Outpatient (CLI) | payer MEDICARE, SELFPAY ==
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
== END | disposition home or self-care (01) ==
LOC: US 07:21
PROVIDERS: PCP Family Medicine; Referring Provider Family Medicine; Visit Provider Family Medicine
DX: R22.2 Localized swelling, mass and lump, trunk (principal)
CPT/HCPCS: 76705

== ENCOUNTER → 2024-01-26 | Outpatient (CLI) | payer MEDICARE, SELFPAY ==
[2024-01-26 11:27] LABS: PSA,Total - Annual Screen 1.43 ng/mL (0.00-4.00)
== END | disposition home or self-care (01) ==
LOC: LAB 10:27
PROVIDERS: PCP Family Medicine; Referring Provider Nurse Practitioner; Visit Provider Nurse Practitioner
DX: Z12.5 Encounter for screening for malignant neoplasm of prostate (principal)
CPT/HCPCS: 36415; 84153; G0103

== ENCOUNTER → 2024-04-12 | Outpatient (CLI) | payer MEDICARE, SELFPAY ==
--- NOTE | 2024-04-12 07:25 | CDU_ITS ---
Reason For Study: dizziness and giddiness Rt. Velocities/BP Lt. Velocities/BP Prox CCA 85.6/20.4 cm/sec. Prox CCA 86.9/25.5 cm/sec. Mid CCA 96.5/21.6 cm/sec. Mid CCA 315.5/86.0 cm/sec. Dist CCA 208.9/40.4 cm/sec. Dist CCA 287.6/52.2 cm/sec. Prox ICA 86.7/6.9 cm/sec. Prox ICA 139.0/31.4 cm/sec. Mid ICA 96.5/26.4 cm/sec. Mid ICA 167.5/35.8 cm/sec. Dist ICA 67.0/20.4 cm/sec. Dist ICA 99.4/24.8 cm/sec. Rt. ICA/CCA = 1.0. Lt. ICA/CCA = .5. Prox ECA 141.8/12.3 cm/sec. Prox ECA 174.1/22.6 cm/sec. Rt. Vert. 94.2/15.7 cm/sec. Lt. Vert. 83.9/21.2 cm/sec. Right Extracranial There is heterogeneous, irregular atherosclerotic plaque noted in the right common carotid artery. There is heterogeneous, irregular atherosclerotic plaque noted in the right internal carotid artery. There is heterogeneous, irregular atherosclerotic plaque noted in the right external carotid artery. Antegrade flow is noted in the right vertebral artery. Left Extracranial There is heterogeneous, irregular atherosclerotic plaque noted in the left common carotid artery. There is heterogeneous, irregular atherosclerotic plaque noted in the left internal carotid artery. There is heterogeneous, irregular atherosclerotic plaque noted in the left external carotid artery. The left external carotid artery is not well visualized. Antegrade flow is noted in the left vertebral artery. Procedure Carotid Duplex 86992. This is a Carotid Duplex examination using B-mode, color flow and specral Doppler. The exam was diagnostic. Prelim called to Dr. Weber. Exam performed in department. VL/Carotid Duplex Ultrasound Interpretation Summary Moderate (50-69%) stenosis right extracranial internal carotid. Moderate (50-69%) stenosis left extracranial internal carotid. Common carotid a rtery with >50% stenosis. Patent and antegrade vertebrals bilaterally. Ordering Physician: Michael Weber Referring Physician: Michael Weber Performed By: Pancho Shen RVT and Student
== END | disposition home or self-care (01) ==
PROVIDERS: PCP Family Medicine; Referring Provider Family Medicine; Visit Provider Family Medicine
DX: R09.89 Other specified symptoms and signs involving the circulatory and respiratory systems (principal)
CPT/HCPCS: 93880

== ENCOUNTER → 2024-04-18 | Outpatient (CLI) | payer MEDICARE, SELFPAY ==
[2024-04-18 06:42] LABS: Hematocrit 37.6 % (40-54); Hemoglobin 12.2 g/dL (13.0-16.5); Mean Corp Hgb Conc 32.4 g/dL (32-36); Mean Corpuscular Hgb 28.8 pg (27.0-32.0); Mean Corpuscular Volume 88.9 fL (80-94); Mean Platelet Vol. 7.9 fl (6.2-12.0); POSITIVE COUNT YES; POSITIVE MORPHOLOGY YES; Platelet Count 439 K/mm3 (150-450); RBC Distribution Width CV 13.4 % (11.6-14.6); RBC Distribution Width SD 43.6 fl (35.1-43.9); Red Blood Count 4.23 M/mm3 (4.6-6.2); White Blood Count 9.9 K/mm3 (4.4-11.0)
[2024-04-18 06:54] LABS: Differential Indicated MANUAL DIFF
[2024-04-18 07:17] LABS: ALB/GLOB Ratio 0.8 RATIO (0.9-2.4); AST(SGOT) 18 U/L (15-37); Alanine Aminotransfer ALT/SGPT 31 U/L (16-61); Albumin, Serum 3.4 g/dL (3.2-5.0); Alkaline Phosphatase 94 U/L (45-117); Anion Gap 7 (5-15); BUN 13 mg/dL (7-18); BUN/Creat Ratio 13.8 RATIO (10-20); Calcium,Total 9.8 mg/dL (8.5-10.1); Chloride 92 mmol/L (98-107); Cholesterol 107 mg/dL (200); Creatinine, Serum 0.94 mg/dL (0.70-1.30); EST Glomerular Filtration Rate 84 mL/min (>60); Est Glom Filt Rate - Afr Amer 102 mL/min (>60); Globulin 4.1 g/dL (2.2-4.2); Glucose 136 mg/dL (74-106); High Density Lipoprotein 43 mg/dL; Potassium 5.4 mmol/L (3.5-5.1); Protein, Total 7.5 g/dL (6.4-8.2); Sodium Level 126 mmol/L (136-145); Triglycerides 131 mg/dL; Very Low Density Lipoprotein 26 mg/dL (5-40)
[2024-04-18 08:23] LABS: Eosinophil 7 % (0-5); Lymphocyte 23 % (19-41); Monocyte 6 % (0-10); Myelocyte 1 % (0-0); Neutrophil-Segmented 63 % (47-70); Total Cells Counted 100 (MANUAL DIFF)
[2024-04-18 08:42] LABS: Platelet Estimate SLT INC (ADEQ); Red Cell Morphology NORM C+C NORMAL (NORM C&C)
[2024-04-18 08:45] LABS: Absolute Neutrophil Count 6.3 X10^3/uL (2.0-7.7)
[2024-04-18 08:46] LABS: Absolute Lymphocyte Count 2.28 X10^3/uL (0.83-4.51)
[2024-04-19 14:49] LABS: Pathologist Review Reviewed
== END | disposition home or self-care (01) ==
PROVIDERS: PCP Family Medicine; Referring Provider Family Medicine; Visit Provider Family Medicine
DX: Z12.5 Encounter for screening for malignant neoplasm of prostate (principal); E78.2 Mixed hyperlipidemia; N40.0 Benign prostatic hyperplasia without lower urinary tract symptoms; I10 Essential (primary) hypertension; R35.0 Frequency of micturition
CPT/HCPCS: 36415; 80053; 80061; 84153; 85025; 87077; 87086; 87088; 87186

== ENCOUNTER 2024-04-30 09:00 | Emergency (ER) | payer MEDICARE, SELFPAY ==
[2024-04-30 09:00] VITALS: BP 196/86; PULSE 73; RESP 18; TEMP 36.3; O2SAT 97; BMI 41.5
--- NOTE | 2024-04-30 09:56 | CT_ITS ---
INDICATION: trauma EXAMINATION: CT LUMBAR SPINE - CT Spine Lumbar W/O Contrast Injection TECHNIQUE: Helically acquired images were obtained of the lumbar spine. 2D reformats were reviewed. A radiation dose optimization technique was used for this scan. The protocol utilizes one or more of the following dose reduction techniques: automated exposure control, adjustment of mA and/or kV according to patient size,and/or use of iterative reconstruction technique. IV Contrast dosage and agent: None. RADIATION DOSAGE (If Supplied By Facility): CTDIvol = ( 27.06 ) mGy, DLP = ( 833.69 ) mGycm COMPARISON: CT of the abdomen and pelvis dated July 30, 2022 FINDINGS: There is an acute compression fracture of the L2 vertebral body associated with a retropulsion into the canal by 9 mm with associated extensive spinal stenosis. There is approximately 50% height loss of the mid vertebral body. The fracture does not appear to extend into the pedicles. There is an associated nondisplaced fractures of the L2 transverse processes. There is multilevel endplate spondylosis and facet hypertrophy. There is multilevel degenerative disc disease. There are peripheral calcifications of the abdominal aorta. There is a separate dedicated CT report of the pelvis. CT/Spine Lumbar without Contrast IMPRESSION: Acute L2 compression fracture with retropulsion and severe spinal stenosis. Atherosclerosis. Electronically Signed: Greta Banerjee MD at 11:35 EDT ,
--- NOTE | 2024-04-30 09:56 | CT_ITS ---
INDICATION: chest wall contusion EXAMINATION: CT CHEST WITHOUT CONTRAST - CT Chest W/O Contrast Injection TECHNIQUE: Helically acquired images were obtained of the chest. The protocol utilizes one or more of the following dose reduction techniques: automated exposure control, adjustment of mA and/or kV according to patient size,and/or use of iterative reconstruction technique. IV Contrast dosage and agent: None. RADIATION DOSAGE (If Supplied By Facility): CTDIvol = ( 16.28 ) mGy, DLP = ( 683.48 ) mGycm COMPARISON: CT of the abdomen and pelvis dated July 30, 2022 FINDINGS: LUNGS, PLEURA AND LARGE AIRWAYS: There is minimal bibasilar atelectasis and/or scarring. There is a left lower lobe granuloma. No pleural effusion or thickening. No pneumothorax. THYROID: No thyroid lesions. HEART AND PERICARDIUM: Heart size is normal. No pericardial effusion. CORONARY ARTERIES: Coronary artery calcification are visualized. VESSELS: Thoracic aorta is not dilated. There are peripheral calcifications of the thoracic aorta. MEDIASTINUM AND VIRGIE: No mediastinal or hilar adenopathy. Esophagus is unremarkable. There is a moderate-sized hiatal hernia. UPPER ABDOMEN: There are gallstones within the gallbladder. BONES: There is a comminuted fracture of the medial left clavicle with dorsal displacement of the distal clavicle. There is no dislocation visualized. There is a nondisplaced left anterior second rib fracture as well. There is subcutaneous edema within the left anterior chest wall. There are intramuscular coarse calcifications dorsal to the left scapula which may be secondary to a remote trauma. There are additional intramuscular calcifications within the bilateral posterior chest wall. There is an L2 compression fracture. There is a separate dedicated CT report of the lumbar spine. CT/Chest without Contrast IMPRESSION: Comminuted medial left clavicular fracture. Nondisplaced second anterior rib fracture. Subcutaneous edema within the left anterior chest wall. Atherosclerosis. Moderate-sized hiatal hernia. Cholelithiasis. Please refer to the dedicated CT report of the lumbar spine for findings regarding the L2 compression fracture. Electronically Signed: Greta Banerjee MD at 11:30 EDT ,
--- NOTE | 2024-04-30 09:56 | CT_ITS ---
INDICATION: injury EXAMINATION: CT PELVIS BONE - CT Pelvis W/O Contrast Injection TECHNIQUE: Routine noncontrast bone CT protocol was performed of the pelvis. 2-D reformats were performed by the technologist. The protocol utilizes one or more of the following dose reduction techniques: automated exposure control, adjustment of mA and/or kV according to patient size,and/or use of iterative reconstruction technique. IV Contrast dosage and agent: None. RADIATION DOSAGE (If Supplied By Facility): CTDIvol = ( 21.16 ) mGy, DLP = ( 623.48 ) mGycm COMPARISON: CT of the abdomen and pelvis dated July 30, 2022 FINDINGS: There are peripheral calcifications of the iliac arteries. There are diverticula arising from the colon. The appendix is within normal limits. The prostate gland is enlarged. The urinary bladder is within normal limits. No acute fracture or subluxation. Normal alignment. There are degenerative changes of the visualized lumbar spine. No sclerotic or destructive changes. CT/Pelvis without IV Contrast IMPRESSION: No acute osseous injury. Enlarged prostate gland. Atherosclerosis. Colonic diverticulosis. Electronically Signed: Greta Banerjee MD at 11:40 EDT ,
--- NOTE | 2024-04-30 09:59 | EDS_ITS ---
HPI History of Present Illness Chief Complaint: Other, Pain/Inj Informant: patient Narrative Narrative: 68-year-old male presenting to the emergency room with low back pain. Patient states that on he was putting antenna on a camper when he lost his balance and fell. He states he landed in a sitting position and then fell onto his back. He notes some bruising of the anterior mid and left chest wall. He is unsure of how that happened. He notes minimal discomfort there. He denies any arm symptoms or abdominal symptoms. No dyspnea or hemoptysis or cough. He notes as long as he is laying down and not moving he feels okay but when he goes to stand up he gets pain in the very low back. He points around L5 the sacrum as the area that hurts. He denies any leg injury. He notes that he feels constipated which is odd for him as he normally takes metformin and has loose stool. He states he has been taking ibuprofen which constipates him. [facility] Medical History Wears glasses Complete edentulism, class III Thyroid disease Arthritis Bladder disease History of leukemia Anemia TIA (transient ischemic attack) Dietary restriction History of hiatal hernia Loose stools Gastric reflux Shortness of breath on exertion History of edema History of stress test History of tongue cancer Former smoker HLD (hyperlipidemia) Hypertension Diabetes History of throat cancer Home Medications ?Medication ?Instructions ?Recorded ?Last Taken ?Type enalapril maleate 10 mg tablet 20 mg PO BID 01/26/18 Unknown History metformin 500 mg tablet 1,000 mg PO BID 01/26/18 Unknown History omeprazole 40 mg capsule,delayed 40 mg PO QHS 01/26/18 Unknown History release acetaminophen 650 mg 1,000 mg PO BID 02/06/21 Unknown History tablet,extended release levothyroxine 100 mcg tablet 100 mcg PO DAILY 02/06/21 Unknown History metoprolol succinate 50 mg 50 mg PO QHS 01/26/22 Unknown History tablet,extended release 24 hr hydralazine 25 mg tablet 25 mg PO BID 30 days #60 tabs 01/27/22 Unknown Rx lovastatin 40 mg tablet 40 mg PO DAILY 01/28/22 Unknown History metoprolol succinate 100 mg 100 mg PO DAILY 01/28/22 Unknown History tablet,extended release 24 hr pilocarpine HCl 5 mg tablet 10 mg PO BID 01/28/22 Unknown History aspirin 81 mg tablet,delayed 81 mg PO DAILY 07/23/22 Unknown History release mirtazapine 15 mg tablet 15 mg PO QHS 07/23/22 Unknown History Salt Tab 1 tab PO/SL 4X/DAY 12/12/22 Unknown History cetirizine 10 mg capsule (Zyrtec) 10 mg PO DAILY 12/12/22 Unknown History cholecalciferol (vitamin D3) 25 50 mcg PO DAILY 12/12/22 Unknown History mcg (1,000 unit) tablet (Vitamin D3) famotidine 20 mg tablet (Pepcid AC) 20 mg PO DAILY 12/12/22 Unknown History oxycodone 5 mg tablet 5 mg PO Q6H PRN pain 5 days #14 12/15/22 Unknown Rx tabs tamsulosin 0.4 mg capsule (Flomax) 0.4 mg PO QHS #14 caps 12/16/22 Unknown Rx docusate sodium 100 mg capsule 100 mg PO BID #20 caps 04/30/24 Unknown Rx (Colace) oxycodone-acetaminophen 5 mg-325 1 tab PO Q4H PRN pain 3 days #18 04/30/24 U nknown Rx mg tablet TABLETS Allergy/AdvReac Type Severity Reaction Status Date / Time latex AdvReac Rash Verified 04/30/24 09:00 Family History Mother Diabetes Gout Heart disease Kidney disease Myocardial infarction Father Diabetes Gout Cancer Heart disease Myocardial infarction Grandmother Diabetes Surgical History S/P inguinal hernia repair using synthetic patch History of tracheostomy History of glossectomy S/P dilatation of esophageal stricture H/O bone marrow transplant Hx of neck surgery S/P TURP Social History household members: none Smoking Status: Former smoker how long ago did patient quit smoking: Quit 27 years ago, smoked 2-3 ppd since teen, used chew also. alcohol intake: never substance use type: does not use ROS ROS ED Constitutional Constitutional ED: Denies chills, fever(s) or weight loss Eyes Eyes: Denies change in vision or diplopia ENT ENT ED: Denies ear pain, rhinorrhea or sore throat Cardiovascular Cardiovascular: Denies chest pain, orthopnea, palpitations or racing heartbeat Respiratory/Chest Respiratory/Chest: Denies cough, dyspnea or orthopnea Gastrointestinal Gastrointestinal: Denies abdominal pain, diarrhea, nausea or vomiting Genitourinary Genitourinary ED: Denies dysuria, hematuria or urinary frequency Musculoskeletal Musculoskeletal: Reports back pain; Denies arthralgias or myalgias Integumentary Reports other Details: Bruising of chest wall ; Denies abscess or rash Neurologic Neurologic: Denies headache(s) or weakness Psychiatric Psychiatric: Denies anxiety, depression, suicidal ideation or suicidal thoughts Endocrine Endocrinology: Denies polydipsia, polyphagia or polyuria Allergic/Immunologic Allergic/Immunologic ED: Denies mouth swelling, tongue swelling or urticaria EXAM Physical Exam Const Vital Signs: 04/30/24 09:00 04/30/24 11:22 Temperature 97.3 F L Temperature Source Temporal Pulse Rate 73 60 Respiratory Rate 18 Blood Pressure 196/86 H 174/74 H Blood Pressure Mean 122 107 Pulse Ox 97 Oxygen Delivery Method Room Air Positive well nourished and well developed General Appearance ED: well developed and NAD HEENT Reports normocephalic, head/scalp atraumatic and moist mucous membranes Eyes PERRL and EOMs intact bilaterally Neck no lymphadenopathy, supple and no JVD Chest Wall Chest Narrative: Patient has purple ecchymosis of the mid and lateral left anterior chest wall. There is no bony crepitance. No subcutaneous emphysema. I do not palpate a clavicular deformity. Resp normal respiratory effort and clear to auscultation bilaterally Cardio regular rate, regular rhythm and no murmurs GI normal to inspection, nondistended, normoactive bowel sounds and non-tender Palpation: soft Back/Spine no CVA tenderness and normal ROM Back/Spine Narrative: Patient has tenderness in the midline around L5 and proximal sacrum. Extremity normal to inspection General Extremety ED: Negative for edema General Extremity: Negative for edema Neuro oriented x3 and CN's II-XII intact bilaterally Sensorium / Orientation: alert Motor Exam: strength 5/5 throughout Psych mental status grossly normal Mood & Affect: Negative for depressed or tearful Skin no rashes or lesions noted and no wounds MDM MDM MDM Narrative Medical decision making narrative: Differential diagnosis includes fracture sprain strain contusion spinal cord injury retroperitoneal hematoma constipation ileus CT of the lumbar spine and pelvis was obtained. This demonstrates an acute fracture of the body of L2. I noted that his bladder seemed enlarged. He was able to urinate 200 mL and a residual volume of around 600. He states that this is not surprising to him as he recently underwent Botox of his bladder. He has normal sensation over his hips and legs. He has normal rectal tone. I spoke with on-call spine surgeon Dr. Mercado. I reviewed the CT read in detail discussing the body of the read in the patient's history and physical. At this point the patient is neurologically intact. Radicles are intact. Patient got good improvement of pain with morphine and was able to stand at the bedside and urinate. I will discharge him home with pain medication. He is to call Dr. Mercado's office on Thursday for appointment soon as possible for back brace and further evaluation. For the clavicle fracture he will be placed in a sling for when he is up moving. Again he has no significant tenderness on palpation of the chest or with movement of the arms. Lungs appear without trauma. Patient is comfortable with this plan. In addition to pain medication I will also write for a stool softener. History & Record Review Discussion w/independent historian: Patient Lab Data Attestation: I reviewed the patient's lab results. Labs: Laboratory Results - last 24 hr 04/30/24 11:04 Urine Color Yellow Urine Clarity Clear Urine pH 6.0 Ur Specific [place] 1.015 Urine Protein 30 H Urine Glucose (UA) 250 H Urine Ketones 5 H Urine Occult Blood 10 H Urine Nitrite Negative Urine Bilirubin Negative Urine Urobilinogen Normal Ur Leukocyte Esterase Negative Urine RBC 0 SEEN Urine WBC 0-5 SEEN Ur Squamous Epith Cells 0-5 SEEN Urine Bacteria 0 SEEN Urine Mucus 0 SEEN Radiography Diagnostic Testing: Clinical Impression(s) from Imaging Studies Chest CT 04/30/24 09:56 IMPRESSION: Comminuted medial left clavicular fracture. Nondisplaced second anterior rib fracture. Subcutaneous edema within the left anterior chest wall. Atherosclerosis. Moderate-sized hiatal hernia. Cholelithiasis. Please refer to the dedicated CT report of the lumbar spine for findings regarding the L2 compression fracture. Electronically Signed: Greta Banerjee MD at 11:30 EDT , Lumbar Spine CT 04/30/24 09:56 IMPRESSION: Acute L2 compression fracture with retropulsion and severe spinal stenosis. Atherosclerosis. Electronically Signed: Greta Banerjee MD at 11:35 EDT , Pelvis CT 04/30/24 09:56 IMPRESSION: No acute osseous injury. Enlarged prostate gland. Atherosclerosis. Colonic diverticulosis. Electronically Signed: Greta Banerjee MD at 11:40 EDT , Discharge Plan Triage Chief Complaint: Other, Pain/Inj ED Provider: Severo Brewer Dx/Rx/DC Orders Clinical Impression: Fracture, clavicle, Closed rib fracture, Closed compression fracture of L2 vertebra, Spinal stenosis, Fall Instructions: Compression Fx, ED Fracture, Clavicle Prescriptions: New oxycodone-acetaminophen 5-325 mg tablet 1 tab PO Q4H PRN (Reason: pain) 3 Days Qty: 18 0RF docusate sodium [Colace] 100 mg capsule 100 mg PO BID Qty: 20 0RF No Action aspirin 81 mg tablet,delayed release (DR/EC) 81 mg PO DAILY mirtazapine 15 mg tablet 15 mg PO QHS metformin 500 MG tablet 1,000 mg PO BID enalapril maleate 10 MG tablet 20 mg PO BID omeprazole 40 MG capsule,delayed release(DR/EC) 40 mg PO QHS acetaminophen 650 MG tablet extended release 1,000 mg PO BID levothyroxine 100 MCG tablet 100 mcg PO DAILY metoprolol succinate 50 mg tablet extended release 24 hr 50 mg PO QHS Patient Comments: TAKE 1 TABLET BY MOUTH ONCE DAILY hydralazine 25 mg tablet 25 mg PO BID 30 Days Qty: 60 0RF pilocarpine HCl 5 mg tablet 10 mg PO BID Patient Comments: TAKE 2 TABLETS BY MOUTH TWICE DAILY lovastatin 40 mg tablet 40 mg PO DAILY Patient Comments: TAKE 1 TABLET BY MOUTH AT BEDTIME metoprolol succinate 100 mg tablet extended release 24 hr 100 mg PO DAILY Patient Comments: TAKE 1 TABLET BY MOUTH ONCE DAILY famotidine [Pepcid AC] 20 mg Tablet 20 mg PO DAILY Zyrtec 10 mg Capsule 10 mg PO DAILY Salt Tab 1 tab PO/SL 4X/DAY cholecalciferol (vitamin D3) [Vitamin D3] 25 mcg (1,000 unit) Tablet 50 mcg PO DAILY oxycodone 5 mg tablet 5 mg PO Q6H PRN (Reason: pain) 5 Days Qty: 14 0RF tamsulosin [Flomax] 0.4 mg capsule 0.4 mg PO QHS Qty: 14 0RF Primary Care Provider: Michael Weber Referrals: Flako Jennings DO [Med Staff - Active Staff] - As soon as possible (for clavicle fracture ) Michael Weber MD [Primary Care Provider] - Colt Mercado DO [Med Staff - Active Staff] - As soon as possible (call Thursday am. Tell them you have an acute compression fraction of L2 and that we spoke with Dr. Mercado and that you need to be soon as soon as possible for back brace and surgical evaluation) Print Language: [place] Disposition Disposition: Home, Self Care
[2024-04-30] MEDS: morphine 10 MG/ML Syringe IM (10:26)
[2024-04-30 11:11] LABS: Bacteria 0 SEEN /hpf (None Seen); Mucous, Urine 0 SEEN /hpf (<or=2+); Red Blood Cells-Urine 0 SEEN /hpf (0-5)
[2024-04-30 11:12] LABS: Color, Urine Yellow (Yellow); Glucose, Dipstick 250 mg/dl (Normal); Ketone-Dipstick 5 mg/dl (Negative); Leukocyte Esterase-Dipstick Negative /ul (Negative); Nitrite-Dipstick Negative (Negative); Occult Blood-Urine 10 /ul (Negative); Protein-Dipstick 30 mg/dl (Negative); Specific Gravity, Urine 1.015 (1.002-1.030); Urine Bilirubin Dipstick Negative (Negative); Urine Clarity Clear (Clear); Urine Urobilinogen Normal (Normal)
[2024-04-30 11:21] LABS: Squamous Epithelial Cells - UA 0-5 SEEN /hpf (0-5); White Blood Cells 0-5 SEEN /hpf (0-5)
[2024-04-30 11:22] VITALS: BP 174/74; PULSE 60
[2024-04-30 12:18] VITALS: BP 184/99; PULSE 87; RESP 16; TEMP 36.7; O2SAT 96
== END 2024-04-30 12:20 | disposition home or self-care (01) ==
PROVIDERS: Emergency Provider Emergency Medicine; PCP Family Medicine; Visit Provider Emergency Medicine
DX: S42.009A Fracture of unspecified part of unspecified clavicle, initial encounter for closed fracture (principal); S32.020A Wedge compression fracture of second lumbar vertebra, initial encounter for closed fracture; E11.9 Type 2 diabetes mellitus without complications; S22.39XA Fracture of one rib, unspecified side, initial encounter for closed fracture; M48.00 Spinal stenosis, site unspecified; Z87.891 Personal history of nicotine dependence; Z86.73 Personal history of transient ischemic attack (TIA), and cerebral infarction without residual deficits; W19.XXXA Unspecified fall, initial encounter
CPT/HCPCS: 71250; 72131; 72192; 81001; 96372; 99283